=== PATIENT | female | born 1955 | race Caucasian/White ===

== ENCOUNTER 2021-04-24 19:23 | Inpatient (IN) | payer BC ==
[2021-04-24] MEDS ORDERED: Labetalol 20 MG/4 ML Syringe IVPUSH ONE (20:22)
--- NOTE | 2021-04-24 20:24 | EDM.PDOC ---
ED HPI GENERAL MEDICAL PROBLEM - General Chief Complaint: General Stated Complaint: UNKNOWN SOURCE OF BLEEDING, TROUBLES WITH BM Time Seen by Provider: 04/24/21 19:45 Source of Information: Reports: Patient History Limitations: Reports: No Limitations - History of Present Illness INITIAL COMMENTS - FREE TEXT/NARRATIVE: 65-year-old female from [place] has been having intermittent bloody stools for the past 2 months. She is supposed to be on an antihypertensive but stopped it because she thought it was making it worse. She thought it might be a blood thinner. Today they were on the vicente, she had to take a break and had a bowel movement and it seemed normal, however shortly afterwards she had another bowel movement and it was diarrheal and bloody. She has had 1 more bloody stool since that time. She denies any significant pain but on her exam she is very tender in the left lower quadrant and admits that it has been sore intermittent. No fevers or chills. She has not had a colonoscopy in her lifetime. She does not see primary care very often and gives me the impression that she is noncompliant. Her blood pressure on arrival was 234/107. Onset: Unknown/Unsure Associated Symptoms: Denies: Confusion, Fever/Chills, Headaches, Malaise, Nausea/Vomiting, Shortness of Breath, Weakness lower left quad Pain Score (Numeric/FACES): 2 - Related Data Allergies Allergy/AdvReac Type Severity Reaction Status Date / Time codeine Allergy Facial Verified 04/24/21 19:48 Swelling Home Meds: Home Meds NK [No Known Home Meds] 04/24/21 [History] Past Medical History HEENT History: Reports: Impaired Vision, Other (See Below) Other HEENT History: glasses Cardiovascular History: Reports: Hypertension, Other (See Below) Other Cardiovascular History: edema Genitourinary History: Reports: Urinary Incontinence 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: Musculoskeletal History: Reports: Arthritis, Other (See Below) Psychiatric History: Reports: Depression - Infectious Disease History Infectious Disease History: Reports: Chicken Pox, Measles - Past Surgical History Female Surgical History: Reports: Section Musculoskeletal Surgical History: Reports: Other (See Below) Other Musculoskeletal Surgeries/Procedures:: repair of left arm fx Social & Family History - Tobacco Use Tobacco Use Status *Q: Never Tobacco User - Caffeine Use Caffeine Use: Reports: Soda - Recreational Drug Use Recreational Drug Use: No ED ROS GENERAL - Review of Systems Review Of Systems: See Below Constitutional: Denies: Fever, Chills HEENT: Denies: Vision Change Respiratory: Denies: Shortness of Breath Cardiovascular: Denies: Chest Pain GI/Abdominal: Reports: Abdominal Pain, Hematochezia. Denies: Nausea, Vomiting Musculoskeletal: Reports: No Symptoms Skin: Reports: No Symptoms Neurological: Denies: Dizziness, Headache Psychiatric: Reports: No Symptoms Free Text/Narrative/Comment: Untreated hypertension ED EXAM, GENERAL - Physical Exam Exam: See Below Free Text/Narrative:: Despite passing sadia blood from the rectum, the patient does not look anemic. Her pulse is 65 and she is hypertensive. Exam Limited By: No Limitations General Appearance: Alert, No Apparent Distress Eye Exam: Bilateral Eye: Normal Inspection (Conjunctivae normal color, no jaundice) Respiratory/Chest: No Respiratory Distress, Lungs Clear Cardiovascular: Regular Rate, Rhythm. No: Tachycardia GI/Abdominal: Soft, Tender (Reacts with tenderness with mild guarding in the left lower quadrant) Neurological: Alert, Oriented, Normal Cognition, No Motor/Sensory Deficits Psychiatric: Normal Affect, Normal Mood Skin Exam: Warm, Dry Course - Vital Signs Last Recorded V/S: Last Vital Signs Temp 97.6 F 04/24/21 23:53 Pulse 57 L 04/24/21 23:35 Resp 16 04/24/21 23:35 BP 181/74 H 04/24/21 23:39 Pulse Ox 100 04/24/21 23:35 - Orders/Labs/Meds Orders: Medication Orders Acetaminophen (Acetaminophen 325 Mg Tab) 650 mg PO Q4H PRN PRN Reason: Pain (Mild 1-3)/fever Sodium Chloride (Normal Saline) 1,000 mls @ 125 mls/hr IV ASDIRECTED [facility] Last Admin: 04/24/21 23:40 Dose: 125 mls/hr Documented by: [id number] Lisinopril (Lisinopril 10 Mg Tab) 10 mg PO DAILY [facility] Last Admin: 04/24/21 23:39 Dose: 10 mg Documented by: [id number] Ondansetron HCl (Ondansetron 4 Mg/2 Ml Sdv) 4 mg IV Q4H PRN PRN Reason: Nausea/Vomiting Oxycodone HCl (Oxycodone 5 Mg Tab) 5 mg PO Q4H PRN PRN Reason: Pain (moderate 4-6) Polyethylene Glycol (Polyethylene Glycol 3350 Powder 17 Gm Packet) 17 gm PO DAILY PRN PRN Reason: Constipation Sodium Chloride (Sodium Chloride 0.9% 10 Ml Syringe) 10 ml FLUSH ASDIRECTED PRN PRN Reason: Keep Vein Open Labs: Laboratory Tests 04/24/21 04/24/21 04/24/21 Range/Units 19:57 19:57 19:57 WBC 8.3 (4.5-11.0) K/uL RBC 4.67 (3.30-5.50) M/uL Hgb 12.2 (12.0-15.0) g/dL Hct 38.6 (36.0-48.0) % MCV 83 (80-98) fL MCH 26 L (27-31) pg MCHC 32 (32-36) % Plt Count 305 (150-400) K/uL Neut % (Auto) 67.6 H (36-66) % Lymph % (Auto) 22.0 L (24-44) % [place] % (Auto) 7.6 H (2-6) % Eos % (Auto) 2.4 (2-4) % Baso % (Auto) 0.4 (0-1) % PT 10.1 (9.5-12.0) sec INR 0.93 (0.80-1.20) Sodium 138 L (140-148) mmol/L Potassium 3.9 (3.6-5.2) mmol/L Chloride 102 (100-108) mmol/L Carbon Dioxide 28 (21-32) mmol/L Anion Gap 11.9 (5.0-14.0) mmol/L BUN 12 (7-18) mg/dL Creatinine 0.9 (0.6-1.0) mg/dL Est Cr Clr Drug Dosing 57.57 mL/min Estimated GFR (MDRD) > 60 (>60) Glucose 130 H (74-106) mg/dL Calcium 8.6 (8.5-10.1) mg/dL Total Bilirubin < 0.1 L (0.2-1.0) mg/dL AST 13 L (15-37) U/L ALT 23 (12-78) U/L Alkaline Phosphatase 91 (46-116) U/L Total Protein 6.7 (6.4-8.2) g/dL Albumin 2.9 L (3.4-5.0) g/dL Globulin 3.8 H (2.3-3.5) g/dL Albumin/Globulin Ratio 0.8 L (1.2-2.2) Meds: Medications Generic Name Dose Route Start Last Admin Trade Name Douglasq PRN Reason Stop Dose Admin Acetaminophen 650 mg 04/24/21 22:56 Acetaminophen 325 Mg Tab PO Q4H PRN Pain (Mild 1-3)/fever Sodium Chloride 1,000 mls @ 125 mls/hr 04/24/21 22:56 04/24/21 23:40 Normal Saline IV 125 mls/hr ASDIRECTED CATHIE Administration Lisinopril 10 mg 04/24/21 22:56 04/24/21 23:39 Lisinopril 10 Mg Tab PO 10 mg DAILY CATHIE Administration Ondansetron HCl 4 mg 04/24/21 22:56 Ondansetron 4 Mg/2 Ml Sdv IV Q4H PRN Nausea/Vomiting Oxycodone HCl 5 mg 04/24/21 22:56 Oxycodone 5 Mg Tab PO Q4H PRN Pain (moderate 4-6) Polyethylene Glycol 17 gm 04/24/21 22:56 Polyethylene Glycol 3350 Powder 17 Gm Packet PO DAILY PRN Constipation Sodium Chloride 10 ml 04/24/21 22:56 Sodium Chloride 0.9% 10 Ml Syringe FLUSH ASDIRECTED PRN Keep Vein Open Discontinued Medications Generic Name Dose Route Start Last Admin Trade Name Douglasq PRN Reason Stop Dose Admin Sodium Chloride 1,000 mls @ 500 mls/hr 04/24/21 20:30 04/24/21 20:33 Normal Saline IV 500 mls/hr ASDIRECTED CATHIE Administration Sodium Chloride 100 mls @ 3 mls/sec 04/24/21 20:45 04/24/21 21:22 Normal Saline IV 3 mls/sec ASDIRECTED CATHIE Administration Iopamidol 150 ml 04/24/21 20:42 04/24/21 21:22 Iopamidol 612 Mg/Ml 150 Ml Bottle IV 04/25/21 20:43 150 ml . DIRECTED PRN Administration RADIOLOGY EXAM Labetalol HCl 20 mg 04/24/21 20:22 04/24/21 20:33 Labetalol 20 Mg/4 Ml Syringe IVPUSH 04/24/21 20:23 15 mg NOW ONE Administration Protocol Sodium Chloride 10 ml 04/24/21 20:42 04/24/21 21:22 Sodium Chloride 0.9% 10 Ml Sdv FLUSH 04/24/21 20:43 10 ml ONETIME ONE Administration - Re-Assessments/Exams Free Text/Narrative Re-Assessment/Exam: 04/24/21 21:08 CBC, CMP and INR was obtained and a CT scan of the abdomen and pelvis with IV contrast to rule out diverticulitis. Hemoglobin is normal, white count is normal, CMP and INR are reassuring. CT scan is pending. 04/25/21 01:04 IMPRESSION: 1. 4.2 cm possible intraluminal mass in the cecum. 2. Wall thickening of the distal rectum. Recommend direct visualization of these findings with colonoscopy. Above findings were discussed with Dr. Kraft, patient will be admitted for serial hemoglobins and further evaluation and stabilization of GI bleed. Departure - Departure Time of Disposition: 23:03 Disposition: Admitted As Inpatient 68 Clinical Impression: Rectal bleed, Hematochezia, Mass of cecum - Discharge Information Sepsis Event Note (ED) - Evaluation Sepsis Screening Result: No Definite Risk - Focused Exam Vital Signs: Vital Signs Temp Pulse Resp BP Pulse Ox 04/24/21 22:30 57 L 19 155/50 H 99 04/24/21 22:01 58 L 18 166/61 H 95 04/24/21 21:10 58 L 22 H 155/53 H 95 04/24/21 20:28 66 16 234/75 H 98 04/24/21 19:48 98.0 F 77 16 213/80 H 99 04/24/21 19:40 98.0 F 77 16 213/80 H 99
[2021-04-24] MEDS ORDERED: Sodium Chloride 0.9% 1,000 ML IV SCH (20:30)
[2021-04-24] MEDS ORDERED: Sodium Chloride 0.9% 10 ML SDV FLUSH ONE (20:42)
[2021-04-24] MEDS ORDERED: Iopamidol 612 MG/ML 150 ML Bottle IV PRN (20:42)
[2021-04-24] MEDS ORDERED: Sodium Chloride 0.9% 100 ML IV SCH (20:45)
--- NOTE | 2021-04-24 21:57 | CRLCT ---
For Patients: As a result of the Century Cures Act, medical imaging exams and procedure reports are released immediately into your electronic medical record. You may view this report before your referring provider. If you have questions, please contact your health care provider. INDICATION: Left lower quadrant abdominal pain. GI bleed. TECHNIQUE: CT scan of the abdomen and pelvis with 150 cc of Isovue-300 given intravenously. FINDINGS: The lung bases the are unremarkable. No focal abnormalities identified in the visualized portions of the liver, spleen, pancreas, and adrenal glands. A few small cysts in the right kidney measuring up to 8 mm. The kidneys are otherwise unremarkable. No hydronephrosis. Mild colonic diverticulosis with no evidence of diverticulitis. 4.2 cm intraluminal possible mass in the cecum. Wall thickening in the distal rectum. The remainder of the GI tract and is incompletely distended but shows no gross abnormalities. No retroperitoneal, pelvic sidewall, or mesenteric adenopathy. Degenerative and mild scoliotic changes of the spine. IMPRESSION: 1. 4.2 cm possible intraluminal mass in the cecum. 2. Wall thickening of the distal rectum. Recommend direct visualization of these findings with colonoscopy. Dictated by Marco Antonio Mcgee MD @ 04/24/2021 9:55:33 PM Please note that all CT scans at this facility use dose modulation, iterative reconstruction, and/or weight-based dosing when appropriate to reduce radiation dose to as low as reasonably achievable. Dictated by: Marco Antonio Mcgee MD @ 04/24/2021 21:55:39 (Electronically Signed)
--- NOTE | 2021-04-24 22:43 | PCM.HP.2 ---
H&P History of Present Illness - General Date of Service: 04/24/21 Admit Problem/Dx: Admission Diagnosis/Problem Admission Diagnosis/Problem Bleeding Source of Information: Patient, Family, Provider, RN Notes Reviewed History Limitations: Reports: No Limitations - History of Present Illness Initial Comments - Free Text/Narative: Ms. Galaviz is a 65-year-old woman who was admitted through the emergency department to observation status with intermittent lower GI bleeding. She has a history of bleeding with bowel movements over the past 3 months that has been relatively mild. This evening had 2 large bloody bowel movements 1 of which occurred after she presented to the emergency department. Hemoglobin is within normal range on initial check. CT scan of the abdomen and pelvis shows evidence of a colon mass which is likely the source of current bleeding. She has a history of hypertension and blood pressure was significantly elevated when she initially presented but now has come under better control while in the emergency department. lower left quad Pain Score (Numeric/FACES): 2 - Related Data Allergies/Adverse Reactions: Allergies Allergy/AdvReac Type Severity Reaction Status Date / Time codeine Allergy Facial Verified 04/24/21 19:48 Swelling Home Medications: Home Meds NK [No Known Home Meds] 04/24/21 [History] Past Medical History HEENT History: Reports: Impaired Vision, Other (See Below) Other HEENT History: glasses Cardiovascular History: Reports: Hypertension, Other (See Below) Other Cardiovascular History: edema Genitourinary History: Reports: Urinary Incontinence [employer]IAN History: Reports: Musculoskeletal History: Reports: Arthritis, Other (See Below) Psychiatric History: Reports: Depression - Infectious Disease History Infectious Disease History: Reports: Chicken Pox, Measles - Past Surgical History Female Surgical History: Reports: Section Musculoskeletal Surgical History: Reports: Other (See Below) Other Musculoskeletal Surgeries/Procedures:: repair of left arm fx Social & Family History - Tobacco Use Tobacco Use Status *Q: Never Tobacco User - Caffeine Use Caffeine Use: Reports: Soda - Recreational Drug Use Recreational Drug Use: No H&P Review of Systems - Review of Systems: Review Of Systems: See Below General: Reports: No Symptoms HEENT: Reports: No Symptoms Pulmonary: Reports: No Symptoms Cardiovascular: Reports: No Symptoms Gastrointestinal: Reports: Abdominal Pain, Hematochezia. Denies: Decreased Augusto etite, Difficulty Swallowing, Distension, Hematemesis, Melena, Mucous in Stool, Nausea, Vomiting Genitourinary: Reports: No Symptoms Musculoskeletal: Reports: No Symptoms Skin: Reports: No Symptoms Psychiatric: Reports: No Symptoms Neurological: Reports: No Symptoms Hematologic/Lymphatic: Reports: No Symptoms Immunologic: Reports: No Symptoms Exam - Exam Exam: See Below - Vital Signs Vital Signs: Last Vital Signs Temp 98.0 F 04/24/21 19:48 Pulse 57 L 04/24/21 22:30 Resp 19 04/24/21 22:30 BP 155/50 H 04/24/21 22:30 Pulse Ox 99 04/24/21 22:30 Weight: 223 lb 5.252 oz - Exam Quality Assessment: DVT Prophylaxis General: Alert, Oriented, Cooperative, Mild Distress HEENT: Conjunctiva Clear, Hearing Intact, Mucosa Moist & [place], Normal Nasal Septum, Posterior Pharynx Clear, Pupils Equal Neck: Supple, Trachea Midline, +2 Carotid Pulse wo Bruit Lungs: Clear to Auscultation, Normal Respiratory Effort Cardiovascular: Regular Rate, Regular Rhythm, Normal S1, Normal S2. No: Systolic Murmur, Diastolic Murmur GI/Abdominal Exam: Soft, Non-Tender, No Organomegaly, No Distention Back Exam: Normal Inspection, Full Range of Motion Extremities: Non-Tender, No Pedal Edema Skin: Warm, Dry, Intact Neurological: Cranial Nerves Intact, Strength Equal Bilateral, Normal Speech, Normal Tone, Sensation Intact. No: Focal Deficit Neuro Extensive - Mental Status: Alert, Oriented x3, Normal Mood/Affect, Normal Cognition, Memory Intact - Patient Data Lab Results Last 24 hrs: Laboratory Results - last 24 hr 04/24/21 04/24/21 04/24/21 Range/Units 19:57 19:57 19:57 WBC 8.3 (4.5-11.0) K/uL RBC 4.67 (3.30-5.50) M/uL Hgb 12.2 (12.0-15.0) g/dL Hct 38.6 (36.0-48.0) % MCV 83 (80-98) fL MCH 26 L (27-31) pg MCHC 32 (32-36) % Plt Count 305 (150-400) K/uL Neut % (Auto) 67.6 H (36-66) % Lymph % (Auto) 22.0 L (24-44) % [place] % (Auto) 7.6 H (2-6) % Eos % (Auto) 2.4 (2-4) % Baso % (Auto) 0.4 (0-1) % PT 10.1 (9.5-12.0) sec INR 0.93 (0.80-1.20) Sodium 138 L (140-148) mmol/L Potassium 3.9 (3.6-5.2) mmol/L Chloride 102 (100-108) mmol/L Carbon Dioxide 28 (21-32) mmol/L Anion Gap 11.9 (5.0-14.0) mmol/L BUN 12 (7-18) mg/dL Creatinine 0.9 (0.6-1.0) mg/dL Est Cr Clr Drug Dosing 57.57 mL/min Estimated GFR (MDRD) > 60 (>60) Glucose 130 H (74-106) mg/dL Calcium 8.6 (8.5-10.1) mg/dL Total Bilirubin < 0.1 L (0.2-1.0) mg/dL AST 13 L (15-37) U/L ALT 23 (12-78) U/L Alkaline Phosphatase 91 (46-116) U/L Total Protein 6.7 (6.4-8.2) g/dL Albumin 2.9 L (3.4-5.0) g/dL Globulin 3.8 H (2.3-3.5) g/dL Albumin/Globulin Ratio 0.8 L (1.2-2.2) Result Diagrams: 04/24/21 19:57 04/24/21 19:57 Sepsis Event Note - Evaluation Sepsis Screening Result: No Definite Risk - Focused Exam Vital Signs: Vital Signs Temp Pulse Resp BP Pulse Ox 04/24/21 22:30 57 L 19 155/50 H 99 04/24/21 22:01 58 L 18 166/61 H 95 04/24/21 21:10 58 L 22 H 155/53 H 95 04/24/21 20:28 66 16 234/75 H 98 04/24/21 19:48 98.0 F 77 16 213/80 H 99 04/24/21 19:40 98.0 F 77 16 213/80 H 99 *Q Meaningful Use (ADM) - VTE *Q VTE Pharmacological Contraindications *Q: Active Hemorrhage - VTE Risk Assess *Q Each Risk Factor Represents 1 Point: Obesity ( BMI > 25 kg/m2) Total Score 1 Point Risk Factors: 1 Each Risk Factor Represents 2 Points: Age 60 - 74 Years, Malignancy (present or previous) Total Score 2 Point Risk Factors: 4 Each Risk Factor Represents 3 Points: None Total Score 3 Point Risk Factors: 0 Each Risk Factor Represents 5 Points: None Total Score 5 Point Risk Factors: 0 Venous Thromboembolism Risk Factor Score *Q: 5 Problem List Initiated/Reviewed/Updated: Yes Orders Last 24hrs: Active Orders 24 hr Category Date Time Status Patient Status Manage Transfer [TRANSFER] Routine ADT 04/24/21 22:34 Active HGB [HEMOGLOBIN] [HEME] Stat Lab 04/24/21 23:00 Ordered Iopamidol [Isovue-300 (61%)] Med 04/24/21 20:42 Active 150 ml IV . DIRECTED PRN Sodium Chloride 0.9% [Normal Saline] 1,000 ml Med 04/24/21 20:30 Active IV ASDIRECTED Sodium Chloride 0.9% [Normal Saline] 100 ml Med 04/24/21 20:45 Active IV ASDIRECTED Resuscitation Status Routine Resus Stat 04/24/21 22:36 Ordered Medication Orders Sodium Chloride (Normal Saline) 1,000 mls @ 500 mls/hr IV ASDIRECTED [facility] Last Admin: 04/24/21 20:33 Dose: 500 mls/hr Documented by: JOEL Sodium Chloride (Normal Saline) 100 mls @ 3 mls/sec IV ASDIRECTED [facility] Last Admin: 04/24/21 21:22 Dose: 3 mls/sec Documented by: [email or web address] Iopamidol (Iopamidol 612 Mg/Ml 150 Ml Bottle) 150 ml IV . DIRECTED PRN PRN Reason: RADIOLOGY EXAM Stop: 04/25/21 20:43 Last Admin: 04/24/21 21:22 Dose: 150 ml Documented by: [email or web address] Assessment/Plan Comment:: ASSESSMENT AND PLAN LOWER GI BLEED-history of intermittent light bleeding with bowel movements for the past 3 months. 2 large bloody bowel movements noted late afternoon and evening. CT scan shows evidence of probable colon mass. -IV fluids for hydration -Clear liquid diet -Serial hemoglobin levels -Defer colonoscopy to outpatient basis as she receives her health care in [facility] PROBABLE COLON MASS -Colonoscopy as above HYPERTENSION-blood pressure significantly elevated on initial presentation to the emergency department -Lisinopril 10 mg p.o. daily, start this evening MAINTENANCE ISSUES -DVT prophylaxis; SCUDs, hold on anticoagulation because of active bleeding -GI prophylaxis; not indicated -Wade catheter; not indicated -Nutrition; clear liquid diet -Nicotinic dependence; not required CODE STATUS-FULL CODE ADMISSION STATUS-this patient will be admitted to observation status, expect no more than a one night hospital stay for evaluation and management of problems as outlined above. DISPOSITION-anticipate discharge to home after the hospital stay. - Mortality Measure Prognosis:: Good
[2021-04-24] MEDS ORDERED: Sodium Chloride 0.9% 10 ML Syringe FLUSH PRN (22:56)
[2021-04-24] MEDS ORDERED: Ondansetron 4 MG/2 ML SDV IV PRN (22:56)
[2021-04-24] MEDS ORDERED: Acetaminophen 325 MG Tab PO PRN (22:56)
[2021-04-24] MEDS ORDERED: Polyethylene Glycol 3350 Powder 17 GM Packet PO PRN (22:56)
[2021-04-24] MEDS ORDERED: oxyCODONE 5 MG Tab PO PRN (22:56)
[2021-04-24] MEDS: Lisinopril 10 MG Tab PO SCH (23:39)
[2021-04-24] MEDS: Sodium Chloride 0.9% 1,000 ML IV SCH (23:40)
[2021-04-25] MEDS: Sodium Chloride 0.9% 1,000 ML IV SCH (07:40)
[2021-04-25] MEDS ORDERED: Bisacodyl 5 MG Tab PO ONE ×2 (10:01→20:00)
[2021-04-25] MEDS: Lisinopril 10 MG Tab PO SCH (10:15)
--- NOTE | 2021-04-25 10:15 | PCM.PN ---
- General Info Date of Service: 04/25/21 Subjective Update: Ms. Galaviz has been stable since admission yesterday. Hemoglobin level has dropped with hydration and likely from bleeding yesterday. Since admission she has had only small amount of bleeding associated with bowel movements. Continues to experience intermittent cramping abdominal pain. Blood pressure control has improved with current management. Functional Status: Reports: Tolerating Diet, Ambulating, Urinating - Review of Systems General: Reports: No Symptoms Pulmonary: Reports: No Symptoms Cardiovascular: Reports: No Symptoms Gastrointestinal: Reports: Abdominal Pain, Hematochezia. Denies: Constipation, Decreased Appetite, Difficulty Swallowing, Melena, Nausea, Vomiting Genitourinary: Reports: No Symptoms - Patient Data Vitals - Most Recent: Last Vital Signs Temp 96.9 F 04/25/21 07:00 Pulse 55 L 04/25/21 07:00 Resp 16 04/25/21 07:00 BP 157/91 H 04/25/21 07:00 Pulse Ox 99 04/25/21 07:00 Weight - Most Recent: 220 lb 6.4 oz I&O - Last 24 Hours: Intake & Output 04/24/21 04/25/21 04/25/21 22:59 06:59 14:59 Intake Total 1579 Output Total 1000 900 Balance 579 -900 Lab Results Last 24 Hours: Laboratory Results - last 24 hr 04/24/21 04/24/21 04/24/21 Range/Units 19:57 19:57 19:57 WBC 8.3 (4.5-11.0) K/uL RBC 4.67 (3.30-5.50) M/uL Hgb 12.2 (12.0-15.0) g/dL Hct 38.6 (36.0-48.0) % MCV 83 (80-98) fL MCH 26 L (27-31) pg MCHC 32 (32-36) % Plt Count 305 (150-400) K/uL Neut % (Auto) 67.6 H (36-66) % Lymph % (Auto) 22.0 L (24-44) % [place] % (Auto) 7.6 H (2-6) % Eos % (Auto) 2.4 (2-4) % Baso % (Auto) 0.4 (0-1) % PT 10.1 (9.5-12.0) sec INR 0.93 (0.80-1.20) Sodium 138 L (140-148) mmol/L Potassium 3.9 (3.6-5.2) mmol/L Chloride 102 (100-108) mmol/L Carbon Dioxide 28 (21-32) mmol/L Anion Gap 11.9 (5.0-14.0) mmol/L BUN 12 (7-18) mg/dL Creatinine 0.9 (0.6-1.0) mg/dL Est Cr Clr Drug Dosing 57.57 mL/min Estimated GFR (MDRD) > 60 (>60) Glucose 130 H (74-106) mg/dL Calcium 8.6 (8.5-10.1) mg/dL Total Bilirubin < 0.1 L (0.2-1.0) mg/dL AST 13 L (15-37) U/L ALT 23 (12-78) U/L Alkaline Phosphatase 91 (46-116) U/L Total Protein 6.7 (6.4-8.2) g/dL Albumin 2.9 L (3.4-5.0) g/dL Globulin 3.8 H (2.3-3.5) g/dL Albumin/Globulin Ratio 0.8 L (1.2-2.2) 04/24/21 04/25/21 04/25/21 Range/Units 23:00 04:35 04:35 WBC 7.5 (4.5-11.0) K/uL RBC 4.28 (3.30-5.50) M/uL Hgb 11.1 L 10.9 L (12.0-15.0) g/dL Hct 35.2 L (36.0-48.0) % MCV 82 (80-98) fL MCH 26 L (27-31) pg MCHC 31 L (32-36) % Plt Count 255 (150-400) K/uL Neut % (Auto) 64.0 (36-66) % Lymph % (Auto) 24.7 (24-44) % [place] % (Auto) 8.6 H (2-6) % Eos % (Auto) 2.4 (2-4) % Baso % (Auto) 0.3 (0-1) % PT (9.5-12.0) sec INR (0.80-1.20) Sodium 139 L (140-148) mmol/L Potassium 3.8 (3.6-5.2) mmol/L Chloride 106 (100-108) mmol/L Carbon Dioxide 26 (21-32) mmol/L Anion Gap 10.8 (5.0-14.0) mmol/L BUN 9 (7-18) mg/dL Creatinine 0.8 (0.6-1.0) mg/dL Est Cr Clr Drug Dosing 64.66 mL/min Estimated GFR (MDRD) > 60 (>60) Glucose 85 (74-106) mg/dL Calcium 8.3 L (8.5-10.1) mg/dL Total Bilirubin (0.2-1.0) mg/dL AST (15-37) U/L ALT (12-78) U/L Alkaline Phosphatase (46-116) U/L Total Protein (6.4-8.2) g/dL Albumin (3.4-5.0) g/dL Globulin (2.3-3.5) g/dL Albumin/Globulin Ratio (1.2-2.2) Med Orders - Current: Current Medications Acetaminophen (Acetaminophen 325 Mg Tab) 650 mg PO Q4H PRN PRN Reason: Pain (Mild 1-3)/fever Bisacodyl (Bisacodyl 5 Mg Tab) 10 mg PO ONETIME ONE Stop: 04/25/21 20:01 Lactated Ringer's (Ringers, Lactated) 1,000 mls @ 100 mls/hr IV ASDIRECTED [facility] Lisinopril (Lisinopril 10 Mg Tab) 10 mg PO DAILY [facility] Last Admin: 04/24/21 23:39 Dose: 10 mg Documented by: Ondansetron HCl (Ondansetron 4 Mg/2 Ml Sdv) 4 mg IV Q4H PRN PRN Reason: Nausea/Vomiting Oxycodone HCl (Oxycodone 5 Mg Tab) 5 mg PO Q4H PRN PRN Reason: Pain (moderate 4-6) Polyethylene Glycol (Polyethylene Glycol 3350 Powder 17 Gm Packet) 17 gm PO DAILY PRN PRN Reason: Constipation Polyethylene Glycol (Polyethylene Glycol 3350 Powder 238 Gm Bot) 238 gm PO ONETIME ONE Stop: 04/25/21 17:01 Sodium Chloride (Sodium Chloride 0.9% 10 Ml Syringe) 10 ml FLUSH ASDIRECTED PRN PRN Reason: Keep Vein Open Discontinued Medications Bisacodyl (Bisacodyl 5 Mg Tab) 10 mg PO ONETIME ONE Stop: 04/25/21 10:02 Sodium Chloride (Normal Saline) 1,000 mls @ 500 mls/hr IV ASDIRECTED [facility] Last Admin: 04/24/21 20:33 Dose: 500 mls/hr Documented by: Sodium Chloride (Normal Saline) 100 mls @ 3 mls/sec IV ASDIRECTED [facility] Last Admin: 04/24/21 21:22 Dose: 3 mls/sec Documented by: Sodium Chloride (Normal Saline) 1,000 mls @ 125 mls/hr IV ASDIRECTED [facility] Last Admin: 04/25/21 07:40 Dose: 125 mls/hr Documented by: Iopamidol (Iopamidol 612 Mg/Ml 150 Ml Bottle) 150 ml IV . DIRECTED PRN PRN Reason: RADIOLOGY EXAM Stop: 04/25/21 20:43 Last Admin: 04/24/21 21:22 Dose: 150 ml Documented by: Labetalol HCl (Labetalol 20 Mg/4 Ml Syringe) 20 mg IVPUSH NOW ONE; Protocol Stop: 04/24/21 20:23 Last Admin: 04/24/21 20:33 Dose: 15 mg Documented by: Sodium Chloride (Sodium Chloride 0.9% 10 Ml Sdv) 10 ml FLUSH ONETIME ONE Stop: 04/24/21 20:43 Last Admin: 04/24/21 21:22 Dose: 10 ml Documented by: - Exam Quality Assessment: DVT Prophylaxis General: Alert, Oriented, Cooperative, Mild Distress Lungs: Clear to Auscultation, Normal Respiratory Effort Cardiovascular: Regular Rate, Regular Rhythm, No Murmurs GI/Abdominal Exam: Soft, No Organomegaly, Tender. No: Distended, Guarding, Rigid, Rebound Extremities: Non-Tender, No Pedal Edema - Patient Data Lab Results Last 24 hrs: Laboratory Results - last 24 hr 04/24/21 04/24/21 04/24/21 Range/Units 19:57 19:57 19:57 WBC 8.3 (4.5-11.0) K/uL RBC 4.67 (3.30-5.50) M/uL Hgb 12.2 (12.0-15.0) g/dL Hct 38.6 (36.0-48.0) % MCV 83 (80-98) fL MCH 26 L (27-31) pg MCHC 32 (32-36) % Plt Count 305 (150-400) K/uL Neut % (Auto) 67.6 H (36-66) % Lymph % (Auto) 22.0 L (24-44) % [place] % (Auto) 7.6 H (2-6) % Eos % (Auto) 2.4 (2-4) % Baso % (Auto) 0.4 (0-1) % PT 10.1 (9.5-12.0) sec INR 0.93 (0.80-1.20) Sodium 138 L (140-148) mmol/L Potassium 3.9 (3.6-5.2) mmol/L Chloride 102 (100-108) mmol/L Carbon Dioxide 28 (21-32) mmol/L Anion Gap 11.9 (5.0-14.0) mmol/L BUN 12 (7-18) mg/dL Creatinine 0.9 (0.6-1.0) mg/dL Est Cr Clr Drug Dosing 57.57 mL/min Estimated GFR (MDRD) > 60 (>60) Glucose 130 H (74-106) mg/dL Calcium 8.6 (8.5-10.1) mg/dL Total Bilirubin < 0.1 L (0.2-1.0) mg/dL AST 13 L (15-37) U/L ALT 23 (12-78) U/L Alkaline Phosphatase 91 (46-116) U/L Total Protein 6.7 (6.4-8.2) g/dL Albumin 2.9 L (3.4-5.0) g/dL Globulin 3.8 H (2.3-3.5) g/dL Albumin/Globulin Ratio 0.8 L (1.2-2.2) 04/24/21 04/25/21 04/25/21 Range/Units 23:00 04:35 04:35 WBC 7.5 (4.5-11.0) K/uL RBC 4.28 (3.30-5.50) M/uL Hgb 11.1 L 10.9 L (12.0-15.0) g/dL Hct 35.2 L (36.0-48.0) % MCV 82 (80-98) fL MCH 26 L (27-31) pg MCHC 31 L (32-36) % Plt Count 255 (150-400) K/uL Neut % (Auto) 64.0 (36-66) % Lymph % (Auto) 24.7 (24-44) % [place] % (Auto) 8.6 H (2-6) % Eos % (Auto) 2.4 (2-4) % Baso % (Auto) 0.3 (0-1) % PT (9.5-12.0) sec INR (0.80-1.20) Sodium 139 L (140-148) mmol/L Potassium 3.8 (3.6-5.2) mmol/L Chloride 106 (100-108) mmol/L Carbon Dioxide 26 (21-32) mmol/L Anion Gap 10.8 (5.0-14.0) mmol/L BUN 9 (7-18) mg/dL Creatinine 0.8 (0.6-1.0) mg/dL Est Cr Clr Drug Dosing 64.66 mL/min Estimated GFR (MDRD) > 60 (>60) Glucose 85 (74-106) mg/dL Calcium 8.3 L (8.5-10.1) mg/dL Total Bilirubin (0.2-1.0) mg/dL AST (15-37) U/L ALT (12-78) U/L Alkaline Phosphatase (46-116) U/L Total Protein (6.4-8.2) g/dL Albumin (3.4-5.0) g/dL Globulin (2.3-3.5) g/dL Albumin/Globulin Ratio (1.2-2.2) Result Diagrams: 04/25/21 04:35 04/25/21 04:35 Sepsis Event Note - Evaluation Sepsis Screening Result: No Definite Risk - Focused Exam Vital Signs: Vital Signs Temp Temp Pulse Resp BP BP Pulse Ox 04/25/21 07:00 96.9 F 55 L 16 157/91 H 99 04/25/21 03:00 97.8 F 58 L 16 144/65 H 97 04/25/21 00:00 04/24/21 23:53 97.6 F 04/24/21 23:39 181/74 H 04/24/21 23:35 57 L 16 181/74 H 100 04/24/21 22:30 57 L 19 155/50 H 99 Pulse Ox 04/25/21 07:00 04/25/21 03:00 04/25/21 00:00 100 04/24/21 23:53 04/24/21 23:39 04/24/21 23:35 04/24/21 22:30 - Problem List Review Problem List Initiated/Reviewed/Updated: Yes - My Orders Last 24 Hours: My Active Orders 04/24/21 Dinner Clear Liquid Diet [DIET] 04/24/21 22:36 Resuscitation Status Routine 04/24/21 22:56 Acetaminophen [TylenoL] 650 mg PO Q4H PRN Ondansetron [Zofran] 4 mg IV Q4H PRN Sodium Chloride 0.9% [Saline Flush] 10 ml FLUSH ASDIRECTED PRN lisinopriL [Prinivil] 10 mg PO DAILY oxyCODONE 5 mg PO Q4H PRN polyethylene glycoL 3350 [MiraLAX] 17 gm PO DAILY PRN 04/24/21 22:56 Ambulate [RC] QID Height and Weight [RC] DAILY Intake and Output [RC] QSHIFT Notify Provider Vital Signs [RC] ASDIRECTED Oxygen Therapy [RC] PRN Peripheral IV Care [RC] . DIRECTED Up ad Analy [RC] ASDIRECTED Up to Chair [RC] QID VTE/DVT Education [RC] Per Unit Routine Vital Signs [RC] Q4H Peripheral IV Insertion Adult [OM.PC] Routine Sequential Compression Device [OM.PC] Per Unit Routine VTE Pharmacological Contraindications [AST] Per Unit Routine 04/25/21 10:00 Convert IV to Saline Lock [OM.PC] Routine 04/25/21 10:01 Verify Patient Consent Obtain [RC] ASDIRECTED Schedule Procedure [COMM] Routine 04/25/21 10:03 Consult to Physician [CONS] Routine 04/25/21 10:04 Notify Provider Consults [RC] ASDIRECTED 04/25/21 10:05 Patient Status [ADT] Routine 04/25/21 17:00 polyethylene glycoL 3350 [MiraLAX] 238 gm PO ONETIME ONE 04/25/21 20:00 bisacodyL [Dulcolax] 10 mg PO ONETIME ONE 04/26/21 00:01 Lactated Ringers [Ringers, Lactated] 1,000 ml IV ASDIRECTED 04/26/21 05:00 BASIC METABOLIC PANEL,BMP [CHEM] Timed CBC WITH AUTO DIFF [HEME] Timed 04/26/21 Breakfast NPO After Midnight [Nothing per Oral After Midnight Diet] [DIET] - Plan Plan:: ASSESSMENT AND PLAN LOWER GI BLEED-history of intermittent light bleeding with bowel movements for the past [address] scan shows evidence of probable colon mass. Since admission only mild bleeding with bowel movements -Saline lock IV -Clear liquid diet -N.p.o. after midnight -Resume IV fluids at midnight -1 day colonoscopy prep -Consult Dr. Sierra for colonoscopy in a.m. 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 daily MAINTENANCE ISSUES -DVT prophylaxis; SCUDs, hold on anticoagulation because of active bleeding -GI prophylaxis; not indicated -Wade catheter; not indicated -Nutrition; clear liquid diet -Nicotinic dependence; not required CODE STATUS-FULL CODE ADMISSION STATUS-we will change to inpatient status today, because of ongoing bleeding and need for colonoscopy DISPOSITION-anticipate discharge to home after the hospital stay.
[2021-04-25] MEDS ORDERED: Polyethylene Glycol 3350 Powder 238 GM Bot PO ONE (17:00)
[2021-04-25] MEDS ORDERED: Lisinopril 10 MG Tab PO STA (20:07)
[2021-04-26] MEDS: Lactated Ringers 1,000 ML IV SCH ×2 (00:12→17:03)
[2021-04-26] MEDS ORDERED: Midazolam 1 MG/ML 2 ML SDV ONE (07:22)
[2021-04-26] MEDS ORDERED: Propofol 200 MG/20 ML SDV ONE (07:22)
[2021-04-26] MEDS ORDERED: fentaNYL 100 MCG/2 ML SDV ONE (07:22)
[2021-04-26] MEDS: Lisinopril 10 MG Tab PO SCH (11:28)
--- NOTE | 2021-04-26 14:23 | PCM.PN ---
- General Info Date of Service: 04/26/21 Subjective Update: No acute events overnight. She reports very mild lower abdominal pain. She has had a small amount of blood in her stools. No nausea. Tolerated colonoscopy th is morning and plan is for right colon resection tomorrow. Blood pressure fairly well controlled with only mild elevation at this time. No fevers. Hemoglobin stable. Functional Status: Reports: Pain Controlled, Tolerating Diet - Review of Systems General: Denies: Fever Gastrointestinal: Reports: Hematochezia - Patient Data Vitals - Most Recent: Last Vital Signs Temp 35.6 C L 04/26/21 11:29 Pulse 49 L 04/26/21 11:29 Resp 18 04/26/21 11:29 BP 156/71 H 04/26/21 11:29 Pulse Ox 97 04/26/21 11:29 Weight - Most Recent: 99.972 kg I&O - Last 24 Hours: Intake & Output 04/25/21 04/26/21 04/26/21 22:59 06:59 14:59 Intake Total 1000 150 560 Output Total 100 Balance 900 150 560 Lab Results Last 24 Hours: Laboratory Results - last 24 hr 04/26/21 04/26/21 04/26/21 Range/Units 04:25 04:25 09:25 WBC 7.5 (4.5-11.0) K/uL RBC 4.28 (3.30-5.50) M/uL Hgb 11.0 L (12.0-15.0) g/dL Hct 35.3 L (36.0-48.0) % MCV 83 (80-98) fL MCH 26 L (27-31) pg MCHC 31 L (32-36) % Plt Count 275 (150-400) K/uL Neut % (Auto) 62.2 (36-66) % Lymph % (Auto) 26.1 (24-44) % [place] % (Auto) 9.0 H (2-6) % Eos % (Auto) 2.4 (2-4) % Baso % (Auto) 0.3 (0-1) % Sodium 138 L (140-148) mmol/L Potassium 3.8 (3.6-5.2) mmol/L Chloride 105 (100-108) mmol/L Carbon Dioxide 26 (21-32) mmol/L Anion Gap 10.8 (5.0-14.0) mmol/L BUN 8 (7-18) mg/dL Creatinine 0.8 (0.6-1.0) mg/dL Est Cr Clr Drug Dosing 64.77 mL/min Estimated GFR (MDRD) > 60 (>60) Glucose 86 (74-106) mg/dL Calcium 8.8 (8.5-10.1) mg/dL Blood Type A POSITIVE Gel Antibody Screen Negative Crossmatch See Detail Med Orders - Current: Current Medications Acetaminophen (Acetaminophen 325 Mg Tab) 650 mg PO Q4H PRN PRN Reason: Pain (Mild 1-3)/fever Alvimopan (Alvimopan 12 Mg Capsule) 12 mg PO ONETIME ONE Stop: 04/27/21 09:01 Lactated Ringer's (Ringers, Lactated) 1,000 mls @ 100 mls/hr IV ASDIRECTED [facility] Last Admin: 04/26/21 00:12 Dose: 100 mls/hr Documented by: Cefoxitin Sodium 2 gm/ Sodium (Chloride) 50 mls @ 100 mls/hr IV ONETIME ONE Stop: 04/27/21 11:29 Fentanyl 2,500 mcg/ Sodium (Chloride) 250 mls @ 0 mls/hr EPIDUR TITRATE [facility]; Protocol Lisinopril (Lisinopril 10 Mg Tab) 10 mg PO DAILY [facility] Stop: 04/26/21 20:00 Last Admin: 04/26/21 11:28 Dose: 10 mg Documented by: Lisinopril (Lisinopril 10 Mg Tab) 10 mg PO ONETIME ONE Stop: 04/27/21 08:01 Lisinopril (Lisinopril 10 Mg Tab) 10 mg PO DAILY [facility] Naloxone HCl (Naloxone 0.4 Mg/Ml Sdv) 0.1 mg IVPUSH Q5M PRN PRN Reason: RESP RATE LESS THAN 6/MINUTE Ondansetron HCl (Ondansetron 4 Mg/2 Ml Sdv) 4 mg IV Q4H PRN PRN Reason: Nausea/Vomiting Oxycodone HCl (Oxycodone 5 Mg Tab) 5 mg PO Q4H PRN PRN Reason: Pain (moderate 4-6) Polyethylene Glycol (Polyethylene Glycol 3350 Powder 17 Gm Packet) 17 gm PO DAILY PRN PRN Reason: Constipation Sodium Chloride (Sodium Chloride 0.9% 10 Ml Syringe) 10 ml FLUSH ASDIRECTED PRN PRN Reason: Keep Vein Open Discontinued Medications Bisacodyl (Bisacodyl 5 Mg Tab) 10 mg PO ONETIME ONE Stop: 04/25/21 10:02 Last Admin: 04/25/21 10:16 Dose: 10 mg Documented by: Bisacodyl (Bisacodyl 5 Mg Tab) 10 mg PO ONETIME ONE Stop: 04/25/21 20:01 Last Admin: 04/25/21 20:57 Dose: 10 mg Documented by: Fentanyl (Fentanyl 100 Mcg/2 Ml Sdv) Confirm Administered Dose 100 mcg .ROUTE .STK-MED ONE Stop: 04/26/21 07:23 Sodium Chloride (Normal Saline) 1,000 mls @ 500 mls/hr IV ASDIRECTED [facility] Last Admin: 04/24/21 20:33 Dose: 500 mls/hr Documented by: Sodium Chloride (Normal Saline) 100 mls @ 3 mls/sec IV ASDIRECTED [facility] Last Admin: 04/24/21 21:22 Dose: 3 mls/sec Documented by: Sodium Chloride (Normal Saline) 1,000 mls @ 125 mls/hr IV ASDIRECTED [facility] Last Admin: 04/25/21 07:40 Dose: 125 mls/hr Documented by: Iopamidol (Iopamidol 612 Mg/Ml 150 Ml Bottle) 150 ml IV . DIRECTED PRN PRN Reason: RADIOLOGY EXAM Stop: 04/25/21 20:43 Last Admin: 04/24/21 21:22 Dose: 150 ml Documented by: Labetalol HCl (Labetalol 20 Mg/4 Ml Syringe) 20 mg IVPUSH NOW ONE; Protocol Stop: 04/24/21 20:23 Last Admin: 04/24/21 20:33 Dose: 15 mg Documented by: Lisinopril (Lisinopril 10 Mg Tab) 10 mg PO NOW STA Stop: 04/25/21 20:08 Last Admin: 04/25/21 20:55 Dose: 10 mg Documented by: Midazolam HCl (Midazolam 1 Mg/Ml 2 Ml Sdv) Confirm Administered Dose 2 mg .ROUTE .STK-MED ONE Stop: 04/26/21 07:23 Polyethylene Glycol (Polyethylene Glycol 3350 Powder 238 Gm Bot) 238 gm PO ONETIME ONE Stop: 04/25/21 17:01 Last Admin: 04/25/21 17:36 Dose: 238 gm Documented by: Propofol (Propofol 200 Mg/20 Ml Sdv) Confirm Administered Dose 200 mg .ROUTE .STK-MED ONE Stop: 04/26/21 07:23 Sodium Chloride (Sodium Chloride 0.9% 10 Ml Sdv) 10 ml FLUSH ONETIME ONE Stop: 04/24/21 20:43 Last Admin: 04/24/21 21:22 Dose: 10 ml Documented by: - Exam Quality Assessment: No: Supplemental Oxygen General: Alert, Oriented, Cooperative, No Acute Distress Lungs: Normal Respiratory Effort GI/Abdominal Exam: Soft, No Distention Extremities: No Pedal Edema Psy/Mental Status: Alert, Normal Affect - Patient Data Lab Results Last 24 hrs: Laboratory Results - last 24 hr 04/26/21 04/26/21 04/26/21 Range/Units 04:25 04:25 09:25 WBC 7.5 (4.5-11.0) K/uL RBC 4.28 (3.30-5.50) M/uL Hgb 11.0 L (12.0-15.0) g/dL Hct 35.3 L (36.0-48.0) % MCV 83 (80-98) fL MCH 26 L (27-31) pg MCHC 31 L (32-36) % Plt Count 275 (150-400) K/uL Neut % (Auto) 62.2 (36-66) % Lymph % (Auto) 26.1 (24-44) % [place] % (Auto) 9.0 H (2-6) % Eos % (Auto) 2.4 (2-4) % Baso % (Auto) 0.3 (0-1) % Sodium 138 L (140-148) mmol/L Potassium 3.8 (3.6-5.2) mmol/L Chloride 105 (100-108) mmol/L Carbon Dioxide 26 (21-32) mmol/L Anion Gap 10.8 (5.0-14.0) mmol/L BUN 8 (7-18) mg/dL Creatinine 0.8 (0.6-1.0) mg/dL Est Cr Clr Drug Dosing 64.77 mL/min Estimated GFR (MDRD) > 60 (>60) Glucose 86 (74-106) mg/dL Calcium 8.8 (8.5-10.1) mg/dL Blood Type A POSITIVE Gel Antibody Screen Negative Crossmatch See Detail Result Diagrams: 04/26/21 04:25 04/26/21 04:25 Sepsis Event Note - Evaluation Sepsis Screening Result: No Definite Risk - Focused Exam Vital Signs: Vital Signs Temp Pulse Resp BP BP Pulse Ox 04/26/21 11:29 35.6 C L 49 L 18 156/71 H 97 04/26/21 11:28 156/71 H 04/26/21 10:34 47 L 16 159/77 H 98 04/26/21 10:00 45 L 16 139/56 L 99 04/26/21 09:32 44 L 16 129/68 98 04/26/21 09:15 45 L 16 98/76 96 04/26/21 09:00 47 L 16 135/60 95 04/26/21 08:48 46 L 16 143/61 H 95 04/26/21 08:38 36.1 C 50 L 16 131/60 96 04/26/21 04:00 36.1 C 55 L 18 138/61 98 - Problem List Review Problem List Initiated/Reviewed/Updated: Yes - Plan Plan:: ASSESSMENT AND PLAN LOWER GI BLEED-history of intermittent light bleeding with bowel movements for the past [address] scan shows evidence of probable colon mass and this was confirmed with endoscopy. Minimal bleeding with stable hemoglobin. -Saline lock IV -Clear liquid diet -N.p.o. 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 -Surgical intervention tomorrow per Dr. Sierra ACUTE BLOOD LOSS ANEMIA-secondary to lower GI bleed. Hemoglobin stable. HYPERTENSION-blood pressure control improved since admission and stable. -Lisinopril 10 mg p.o. daily MAINTENANCE ISSUES -DVT prophylaxis; SCUDs, hold on anticoagulation because of active bleeding -GI prophylaxis; not indicated -Wade catheter; not indicated -Nutrition; clear liquid diet DISPOSITION-anticipate discharge to home after the hospital stay. Anticipate discharge home after the hospital stay
[2021-04-27] MEDS: Lactated Ringers 1,000 ML IV SCH (02:09)
[2021-04-27] MEDS ORDERED: Bupivacaine 0.5% 50 ML MDV ONE (07:09)
[2021-04-27] MEDS ORDERED: Meropenem 500 MG SDV ONE ×3 (07:09→14:42)
[2021-04-27] MEDS ORDERED: Lidocaine 1% with EPINEPHrine 1:100,000 50 ML MDV ONE (07:10)
--- NOTE | 2021-04-27 07:29 | PCM.PN ---
- General Info Date of Service: 04/27/21 Subjective Update: No acute events overnight. Patient reports persistent mild lower abdominal pain which is stable. She had a small amount of bloody stool yesterday evening. No nausea. No shortness of breath. Blood pressures have been fairly well controlled. Surgical intervention is planned this morning. Functional Status: Reports: Pain Controlled - Patient Data Vitals - Most Recent: Last Vital Signs Temp 36.4 C 04/27/21 07:14 Pulse 57 L 04/27/21 07:14 Resp 16 04/27/21 07:14 BP 186/82 H 04/27/21 07:14 Pulse Ox 99 04/27/21 07:14 Weight - Most Recent: 99.972 kg I&O - Last 24 Hours: Intake & Output 04/26/21 04/27/21 04/27/21 22:59 06:59 14:59 Intake Total 600 1153 Balance 600 1153 Lab Results Last 24 Hours: Laboratory Results - last 24 hr 04/26/21 04/27/21 04/27/21 Range/Units 09:25 04:15 04:15 WBC 7.3 (4.5-11.0) K/uL RBC 4.35 (3.30-5.50) M/uL Hgb 11.2 L (12.0-15.0) g/dL Hct 35.9 L (36.0-48.0) % MCV 83 (80-98) fL MCH 26 L (27-31) pg MCHC 31 L (32-36) % Plt Count 279 (150-400) K/uL Sodium 140 (140-148) mmol/L Potassium 3.8 (3.6-5.2) mmol/L Chloride 104 (100-108) mmol/L Carbon Dioxide 28 (21-32) mmol/L Anion Gap 8.4 (5.0-14.0) mmol/L BUN 9 (7-18) mg/dL Creatinine 0.8 (0.6-1.0) mg/dL Est Cr Clr Drug Dosing 64.77 mL/min Estimated GFR (MDRD) > 60 (>60) Glucose 85 (74-106) mg/dL Calcium 8.5 (8.5-10.1) mg/dL Phosphorus 4.3 (2.5-4.9) mg/dL Magnesium 1.7 L (1.8-2.4) mg/dL Ferritin 43 (8-388) ng/ml Total Bilirubin 0.3 D (0.2-1.0) mg/dL AST 11 L (15-37) U/L ALT 21 (12-78) U/L Alkaline Phosphatase 80 (46-116) U/L Total Protein 6.0 L (6.4-8.2) g/dL Albumin 2.5 L (3.4-5.0) g/dL Globulin 3.5 (2.3-3.5) g/dL Albumin/Globulin Ratio 0.7 L (1.2-2.2) Blood Type A POSITIVE Gel Antibody Screen Negative Crossmatch See Detail Med Orders - Current: Current Medications Acetaminophen (Acetaminophen 325 Mg Tab) 650 mg PO Q4H PRN PRN Reason: Pain (Mild 1-3)/fever Alvimopan (Alvimopan 12 Mg Capsule) 12 mg PO ONETIME ONE Stop: 04/27/21 09:01 Lactated Ringer's (Ringers, Lactated) 1,000 mls @ 100 mls/hr IV ASDIRECTED [facility] Last Admin: 04/27/21 02:09 Dose: 100 mls/hr Documented by: Cefoxitin Sodium 2 gm/ Sodium (Chloride) 50 mls @ 100 mls/hr IV ONETIME ONE Stop: 04/27/21 11:29 Fentanyl 2,500 mcg/ Sodium (Chloride) 250 mls @ 0 mls/hr EPIDUR TITRATE CATHIE; Protocol Lisinopril (Lisinopril 10 Mg Tab) 10 mg PO ONETIME ONE Stop: 04/27/21 08:01 Lisinopril (Lisinopril 10 Mg Tab) 10 mg PO DAILY [facility] Naloxone HCl (Naloxone 0.4 Mg/Ml Sdv) 0.1 mg IVPUSH Q5M PRN PRN Reason: RESP RATE LESS THAN 6/MINUTE Ondansetron HCl (Ondansetron 4 Mg/2 Ml Sdv) 4 mg IV Q4H PRN PRN Reason: Nausea/Vomiting Oxycodone HCl (Oxycodone 5 Mg Tab) 5 mg PO Q4H PRN PRN Reason: Pain (moderate 4-6) Polyethylene Glycol (Polyethylene Glycol 3350 Powder 17 Gm Packet) 17 gm PO DAILY PRN PRN Reason: Constipation Sodium Chloride (Sodium Chloride 0.9% 10 Ml Syringe) 10 ml FLUSH ASDIRECTED PRN PRN Reason: Keep Vein Open Discontinued Medications Bisacodyl (Bisacodyl 5 Mg Tab) 10 mg PO ONETIME ONE Stop: 04/25/21 10:02 Last Admin: 04/25/21 10:16 Dose: 10 mg Documented by: Bisacodyl (Bisacodyl 5 Mg Tab) 10 mg PO ONETIME ONE Stop: 04/25/21 20:01 Last Admin: 04/25/21 20:57 Dose: 10 mg Documented by: Bupivacaine HCl (Bupivacaine 0.5% 50 Ml Mdv) Confirm Administered Dose 50 ml .ROUTE .STK-MED ONE Stop: 04/27/21 07:10 Fentanyl (Fentanyl 100 Mcg/2 Ml Sdv) Confirm Administered Dose 100 mcg .ROUTE .STK-MED ONE Stop: 04/26/21 07:23 Sodium Chloride (Normal Saline) 1,000 mls @ 500 mls/hr IV ASDIRECTED [facility] Last Admin: 04/24/21 20:33 Dose: 500 mls/hr Documented by: Sodium Chloride (Normal Saline) 100 mls @ 3 mls/sec IV ASDIRECTED [facility] Last Admin: 04/24/21 21:22 Dose: 3 mls/sec Documented by: Sodium Chloride (Normal Saline) 1,000 mls @ 125 mls/hr IV ASDIRECTED [facility] Last Admin: 04/25/21 07:40 Dose: 125 mls/hr Documented by: Iopamidol (Iopamidol 612 Mg/Ml 150 Ml Bottle) 150 ml IV . DIRECTED PRN PRN Reason: RADIOLOGY EXAM Stop: 04/25/21 20:43 Last Admin: 04/24/21 21:22 Dose: 150 ml Documented by: Labetalol HCl (Labetalol 20 Mg/4 Ml Syringe) 20 mg IVPUSH NOW ONE; Protocol Stop: 04/24/21 20:23 Last Admin: 04/24/21 20:33 Dose: 15 mg Documented by: Lidocaine/Epinephrine (Lidocaine 1% With Epinephrine 1:100,000 50 Ml Mdv) Confirm Administered Dose 50 ml .ROUTE .STK-MED ONE Stop: 04/27/21 07:11 Lisinopril (Lisinopril 10 Mg Tab) 10 mg PO DAILY [facility] Stop: 04/26/21 20:00 Last Admin: 04/26/21 11:28 Dose: 10 mg Documented by: Lisinopril (Lisinopril 10 Mg Tab) 10 mg PO NOW STA Stop: 04/25/21 20:08 Last Admin: 04/25/21 20:55 Dose: 10 mg Documented by: Meropenem (Meropenem 500 Mg Sdv) Confirm Administered Dose 500 mg .ROUTE .STK- MED ONE Stop: 04/27/21 07:10 Midazolam HCl (Midazolam 1 Mg/Ml 2 Ml Sdv) Confirm Administered Dose 2 mg .ROUTE .STK-MED ONE Stop: 04/26/21 07:23 Polyethylene Glycol (Polyethylene Glycol 3350 Powder 238 Gm Bot) 238 gm PO ONETIME ONE Stop: 04/25/21 17:01 Last Admin: 04/25/21 17:36 Dose: 238 gm Documented by: Propofol (Propofol 200 Mg/20 Ml Sdv) Confirm Administered Dose 200 mg .ROUTE .STK-MED ONE Stop: 04/26/21 07:23 Sodium Chloride (Sodium Chloride 0.9% 10 Ml Sdv) 10 ml FLUSH ONETIME ONE Stop: 04/24/21 20:43 Last Admin: 04/24/21 21:22 Dose: 10 ml Documented by: - Exam Quality Assessment: No: Supplemental Oxygen General: Alert, Oriented, Cooperative, No Acute Distress Lungs: Normal Respiratory Effort GI/Abdominal Exam: Soft, No Distention Extremities: No Pedal Edema Psy/Mental Status: Alert, Normal Affect - Patient Data Lab Results Last 24 hrs: Laboratory Results - last 24 hr 04/26/21 04/27/21 04/27/21 Range/Units 09:25 04:15 04:15 WBC 7.3 (4.5-11.0) K/uL RBC 4.35 (3.30-5.50) M/uL Hgb 11.2 L (12.0-15.0) g/dL Hct 35.9 L (36.0-48.0) % MCV 83 (80-98) fL MCH 26 L (27-31) pg MCHC 31 L (32-36) % Plt Count 279 (150-400) K/uL Sodium 140 (140-148) mmol/L Potassium 3.8 (3.6-5.2) mmol/L Chloride 104 (100-108) mmol/L Carbon Dioxide 28 (21-32) mmol/L Anion Gap 8.4 (5.0-14.0) mmol/L BUN 9 (7-18) mg/dL Creatinine 0.8 (0.6-1.0) mg/dL Est Cr Clr Drug Dosing 64.77 mL/min Estimated GFR (MDRD) > 60 (>60) Glucose 85 (74-106) mg/dL Calcium 8.5 (8.5-10.1) mg/dL Phosphorus 4.3 (2.5-4.9) mg/dL Magnesium 1.7 L (1.8-2.4) mg/dL Ferritin 43 (8-388) ng/ml Total Bilirubin 0.3 D (0.2-1.0) mg/dL AST 11 L (15-37) U/L ALT 21 (12-78) U/L Alkaline Phosphatase 80 (46-116) U/L Total Protein 6.0 L (6.4-8.2) g/dL Albumin 2.5 L (3.4-5.0) g/dL Globulin 3.5 (2.3-3.5) g/dL Albumin/Globulin Ratio 0.7 L (1.2-2.2) Blood Type A POSITIVE Gel Antibody Screen Negative Crossmatch See Detail Result Diagrams: 04/27/21 04:15 04/27/21 04:15 Sepsis Event Note - Evaluation Sepsis Screening Result: No Definite Risk - Focused Exam Vital Signs: Vital Signs Temp Pulse Resp BP BP Pulse Ox 04/27/21 07:14 36.4 C 57 L 16 186/82 H 99 04/27/21 02:00 35.4 C L 55 L 18 128/57 L 95 04/26/21 22:36 35.6 C L 49 L 16 153/53 H 96 04/26/21 19:32 168/76 H 04/26/21 19:29 35.9 C L 67 16 177/81 H 98 - Problem List Review Problem List Initiated/Reviewed/Updated: Yes - Plan Plan:: ASSESSMENT AND PLAN LOWER GI BLEED-history of intermittent light bleeding with bowel movements for the past [address] scan shows evidence of probable colon mass and this was confirmed with endoscopy. Minimal bleeding with stable hemoglobin. -Saline lock IV -N.p.o. 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 -Surgical intervention tomorrow per Dr. Sierra ACUTE BLOOD LOSS ANEMIA-secondary to lower GI bleed. Hemoglobin stable. HYPERTENSION-blood pressure control improved since admission and stable. -Lisinopril 10 mg p.o. daily MAINTENANCE ISSUES -DVT prophylaxis; SCUDs, hold on anticoagulation because of active bleeding -GI prophylaxis; not indicated -Wade catheter; not indicated -Nutrition; nothing by mouth DISPOSITION-anticipate discharge to home after the hospital stay Patient is headed to surgery this morning. She has had stable blood pressures over the past couple of days. The hospitalist service will sign off at this time since the patient is headed for surgical intervention. Please feel free to contact with any specific questions or concerns. Skinny Kaplan MD
[2021-04-27] MEDS ORDERED: Succinylcholine 200 MG/10 ML MDV ONE (07:48)
[2021-04-27] MEDS ORDERED: Dexamethasone 4 MG/ML SDV ONE (07:48)
[2021-04-27] MEDS ORDERED: Ondansetron 4 MG/2 ML SDV ONE (07:48)
[2021-04-27] MEDS ORDERED: Neostigmine Methylsulfate 1 MG/ML 5 ML Syringe ONE (07:48)
[2021-04-27] MEDS ORDERED: Rocuronium 50 MG/5 ML Vial ONE (07:48)
[2021-04-27] MEDS ORDERED: fentaNYL 100 MCG/2 ML SDV ONE (07:48)
[2021-04-27] MEDS ORDERED: fentaNYL 250 MCG/5 ML SDV ONE ×2 (07:48→12:50)
[2021-04-27] MEDS ORDERED: Sodium Chloride 0.9% 10 ML ONE ×2 (07:48→14:42)
[2021-04-27] MEDS ORDERED: Propofol 200 MG/20 ML SDV ONE (07:48)
[2021-04-27] MEDS ORDERED: Glycopyrrolate 0.2 MG/ML 5 ML MDV ONE (07:48)
[2021-04-27] MEDS ORDERED: Lisinopril 10 MG Tab PO ONE (08:00)
[2021-04-27] MEDS ORDERED: fentaNYL 2,500 MCG in Sodium Chloride 0.9% 200 ML EPIDUR SCH (11:00)
[2021-04-27] MEDS ORDERED: Naloxone 0.4 MG/ML SDV IVPUSH PRN (11:00)
[2021-04-27] MEDS ORDERED: cefOXitin 2 GM in Sodium Chloride 0.9% 50 ML IV ONE (11:00)
[2021-04-27] MEDS ORDERED: Meropenem 500 MG SDV IRR ONE ×2 (14:17)
[2021-04-27] MEDS ORDERED: Lactated Ringers 1,000 ML ONE ×2 (15:01)
[2021-04-27] MEDS ORDERED: Naloxone 0.4 MG/ML SDV IV PRN (17:00)
[2021-04-27] MEDS ORDERED: Acetaminophen 500 MG Tab PO PRN (17:00)
[2021-04-27] MEDS ORDERED: Metoclopramide 10 MG/2 ML SDV IVPUSH PRN (17:00)
[2021-04-27] MEDS ORDERED: diphenhydrAMINE 50 MG/ML SDV IVPUSH PRN ×2 (17:00)
[2021-04-27] MEDS: MVI, Adult with Vitamin K 10 ML, Thiamine 200 MG, Zinc/Copper/Manganese/Selenium 1 ML i... IV SCH ×4 (17:45)
[2021-04-27] MEDS: cefOXitin 2 GM in Sodium Chloride 0.9% 50 ML IV SCH ×2 (17:45→23:53)
[2021-04-27] MEDS: Pantoprazole 40 MG Vial IVPUSH SCH (17:46)
[2021-04-27] MEDS: Acetaminophen 500 MG Tab PO SCH (17:47)
[2021-04-27] MEDS: hydrOXYzine HCL 100 MG/2 ML SDV IM PRN (19:11)
[2021-04-27] MEDS: Cyclobenzaprine 10 MG Tab PO PRN (21:05)
[2021-04-27] MEDS ORDERED: Tranexamic Acid 1,000 MG in Sodium Chloride 0.9% 50 ML IV ONE (22:05)
[2021-04-27] MEDS ORDERED: Lactated Ringers 1,000 ML IV ONE (22:06)
[2021-04-28] MEDS: Dextrose 5%-Lactated Ringers 1,000 ML IV SCH ×3 (01:18→21:34)
[2021-04-28] MEDS ORDERED: Tranexamic Acid 1,000 MG in Sodium Chloride 0.9% 50 ML IV ONE (01:30)
[2021-04-28] MEDS ORDERED: Lactated Ringers 1,000 ML IV SCH (02:15)
[2021-04-28] MEDS: Acetaminophen 500 MG Tab PO SCH ×3 (02:52→17:56)
[2021-04-28] MEDS: cefOXitin 2 GM in Sodium Chloride 0.9% 50 ML IV SCH ×3 (05:06→17:56)
[2021-04-28] MEDS ORDERED: Lactated Ringers 750 ML IV SCH (06:14)
--- NOTE | 2021-04-28 08:49 | OR ---
DATE OF PROCEDURE: 04/26/2021 SURGEON: Murphy Sierra MD PREOPERATIVE DIAGNOSES: 1. 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 OPERATIVE PROCEDURE: Flexible colonoscopy. ANESTHESIA: IV sedation. INDICATION FOR PROCEDURE: This 65-year-old female presenting with rectal bleeding. This has been going on now for several months and on CT scan initially she was noted have a mass involving the cecum. There was also some questionable thickening of the rectum. Plan is to proceed with a colonoscopy with biopsies and/or polypectomy as indicated. Potential risks including bleeding and perforation were discussed, and the patient wishes to proceed. DETAILS OF PROCEDURE: The patient was taken to the operating room and placed in a left lateral decubitus position, IV sedation was administered. Digital rectal exam did find a mass at the tip of the examiner's finger and examination of this with the colonoscope showed this to be an obvious carcinoma. This was ulcerated and bleeding. As one would pass the scope more proximally, the remainder of the rectum, sigmoid colon, descending colon, splenic flexure, and transverse colon were unremarkable. The colonoscope, probably related to the patient having markedly redundant colon, could not be passed all the way to the cecum. There was some blood present in the lumen at the level of the junction of the ascending colon and transverse colon, the scope could not be passed more proximal to that. At that point the scope was withdrawn. The above findings were reconfirmed. The prep was generally fairly good and the procedure then concluded. At this point, one will need to proceed in the direction of this being a 2 site probable carcinoma and with the active bleeding at this point, early surgical intervention would appear to be warranted. Of note, the mass in the rectum did appear to be fairly mobile, did not appear to fixed to the pelvic sidewalls grossly nor does it appear to be so on the CAT scan. The plan will be to proceed with a total abdominal colectomy with probable low ileoproctostomy. The level of the tumor is such that we should likely be able to get below that level and discuss further with the patient later today or tomorrow morning regarding possibly needing an ileostomy, either as part of the initial procedure or if complications such as leak from the pelvic anastomosis were to occur will be gone over. The plan will be to proceed with exploratory laparotomy. By palpation confirmed there is a mass in the cecum, and if that is the case then we will need to proceed with a total abdominal colectomy with ileoproctostomy. Depending on how low the anastomosis is, one may consider placement of the J-pouch as well. Murphy Sierra MD /[id number]
[2021-04-28] MEDS: Magnesium Sulfate/Water 2 GM in Premix Bag 1 BAG IV SCH ×3 (09:03→21:35)
[2021-04-28] MEDS: Lisinopril 10 MG Tab PO SCH (09:06)
[2021-04-28] MEDS ORDERED: fentaNYL 2,500 MCG in Sodium Chloride 0.9% 200 ML EPIDUR SCH (09:54)
[2021-04-28] MEDS ORDERED: Lactated Ringers 750 ML IV ONE (11:00)
--- NOTE | 2021-04-28 12:38 | PN ---
DATE OF SERVICE: 04/28/2021 The patient has been afebrile with stable vital signs. Concern overnight has been urine output. She has required 3 boluses to maintain that urine output, and creatinine has bumped up from a baseline of 0.8 to 1.3. Otherwise, she has good comfort with the epidural catheter. We will leave that in place and plan to proceed with a delayed primary closure tomorrow. The NG tube we will leave in until then, probably getting that out at the time of the closure. The Wade catheter we may leave in an additional time depending on the urine output status and the epidural catheter which we may leave it in for an extra day or two as well given the extent of the patient's dissection and such. Otherwise, she is alert and appears to be moving on reasonably well, and we will continue work on increasing activity, work on pulmonary toilet. Her albumin is quite low, and we will supplement that over the next 4 days as well; and magnesium is low, and that will be supplemented over the next 3 days. Murphy Sierra MD /[id number]
--- NOTE | 2021-04-28 13:48 | PN ---
DATE OF SERVICE: 04/26/2021 The patient is noted to have some ongoing rectal bleeding. CT scan showed a mass in the cecum and some thickening of the rectum. Unfortunately on colonoscopy this morning, the thickening of the rectum was an obvious carcinoma as well. This was low enough that one could do a primary anastomosis, most likely aiming for a subtotal colectomy. At age 65 with 2 concurrent colon carcinomas, she has high likelihood of developing further malignancies elsewhere. Other option would be to do a right colectomy and then a second rectal anastomosis. This would put the patient at somewhat higher risk regarding 2 anastomoses and also leave the remaining colon in place which at this point appears to be highly likely associated with a carcinoma. Colonoscopy today was somewhat marginal as well in terms of prep due to a large amount of blood and some remaining stool making the possibility that we are leaving some polyps in the colon between the 2 points of malignancy a distinct possibility. Given this, we are probably better off doing a subtotal colectomy with a fairly low anastomosis and perhaps construct a J pouch. This had been discussed earlier with the patient. We will discuss further based on the colonoscopy findings. Potential risks of the procedure including bleeding, infection, leaks from various GI tract closures as well as possibility of cardiopulmonary, septic, or hemorrhagic complications leading to were all discussed, and the patient wishes to proceed. Surgery will be scheduled for tomorrow. We will give her some Ensure Clear today and plan to proceed with a general and epidural anesthetic for the procedure tomorrow. Murphy Sierra MD /[id number]
--- NOTE | 2021-04-28 15:01 | PN ---
DATE OF SERVICE: 04/27/2021 The operative finding of the relatively low rectal carcinoma with active bleeding was reviewed with the patient this morning. This rectal cancer in and of itself would typically be worked up and likely receive some neoadjuvant chemoradiation treatment, however, with concurrent cecal cancer which appears to be at some point to cause an obstruction now essentially the cecum at the ileocecal valve as well as the fact that the patient's active bleeding from the rectal carcinoma would argue against that approach, and on the other hand argue toward may be surgical intervention. This will be done later today. As reviewed with the patient, this is a low rectal carcinoma thought we can probably get with a reasonable margin. This, however, with the right colon lesion would more or less indicate need for a total proctocolectomy with anastomosis just above or at the inguinal level. We would likely proceed with a J-pouch. With all of this, she is aware that she will likely have multiple loose bowel movements long-term with this and likewise has some possible need for ileostomy if we were not able to get margin today or if the patient would develop a leak in anticipation of the patient not having a diverting ileostomy given the lack of previous radiation treatment. She is aware that if she would develop a leak in the ileostomy, would then be required on temporary basis. Otherwise, additional questions were answered with the patient this morning, and she wishes to proceed. Murphy Sierra MD /[id number]
[2021-04-28] MEDS: MVI, Adult with Vitamin K 10 ML, Thiamine 200 MG, Zinc/Copper/Manganese/Selenium 1 ML i... IV SCH ×4 (15:25)
[2021-04-28] MEDS: Pantoprazole 40 MG Vial IVPUSH SCH (17:55)
[2021-04-28] MEDS ORDERED: Furosemide 20 MG/2 ML VIAL IVPUSH ONE (18:47)
[2021-04-29] MEDS: cefOXitin 2 GM in Sodium Chloride 0.9% 50 ML IV SCH ×5 (00:01→23:57)
[2021-04-29] MEDS: hydrOXYzine HCL 100 MG/2 ML SDV IM PRN (01:10)
[2021-04-29] MEDS: Acetaminophen 500 MG Tab PO SCH ×3 (01:12→18:09)
[2021-04-29] MEDS: Magnesium Sulfate/Water 2 GM in Premix Bag 1 BAG IV SCH ×4 (04:28→22:29)
[2021-04-29] MEDS: Dextrose 5%-Lactated Ringers 1,000 ML IV SCH (05:35)
[2021-04-29] MEDS ORDERED: Meropenem 500 MG SDV ONE (06:32)
[2021-04-29] MEDS ORDERED: Bupivacaine 0.5% 50 ML MDV ONE (06:32)
[2021-04-29] MEDS ORDERED: Lidocaine 1% with EPINEPHrine 1:100,000 50 ML MDV ONE (06:32)
[2021-04-29] MEDS ORDERED: Propofol 200 MG/20 ML SDV ONE ×2 (06:57→07:46)
[2021-04-29] MEDS ORDERED: Ropivacaine 50 ML, dexAMETHasone 8 MG, EPINEPHrine 0.4 MG, Sodium Chloride 0.9% 27.6 ML NERVRT SCH ×4 (07:15)
--- NOTE | 2021-04-29 07:21 | OR ---
DATE OF PROCEDURE: 04/27/2021 SURGEON: Murphy Sierra MD PREOPERATIVE DIAGNOSIS: Synchronous masses, cecum and lower rectum with active GI bleeding. POSTOPERATIVE DIAGNOSES: 1. Synchronous masses, cecum and lower rectum with active GI bleeding. 2. Close examination of cecal mass shows more likely submucosal mass at the ileocecal valve versus an overt carcinoma with the rectal lesion being consistent with standard malignancy. OPERATIVE PROCEDURE: Exploratory laparotomy with: 1. Total abdominal colectomy with ileoproctostomy (91142). 2. Mobilization of omentum into pelvis and the patient had Interceed underneath incision to limit recurrent adhesion formation as well as displace small bowel from pelvis in the event postop radiation treatment is required ([id number]). ANESTHESIA: General plus epidural. INDICATION FOR PROCEDURE: Please see notes dictated yesterday and earlier today. Plan is to proceed most likely with a total abdominal colectomy given the 2 synchronous lesions. Lesion on the right side could not be well visualized yesterday and the plan will be to proceed with confirmation of that being a mass on initial exploration, and initially would then proceed with total abdominal colectomy with ileoproctostomy. She is aware of possible need for ileostomy at the time of today's procedure or if complication was to occur such as leak from a pelvic anastomosis. Otherwise, potential risks of the procedure including bleeding, infection, injury to underlying viscera, problems with leaks from GI tract anastomosis, problems with removal of distant tumor, recurrence, as well as possible need for postoperative radiation and/or chemotherapy were all gone over along with remote possibility of cardiopulmonary, septic, or hemorrhagic complications leading to , and the patient wishes to proceed. DETAILS OF PROCEDURE: The patient was taken to the operating room, placed in a supine position. After general endotracheal anesthesia was induced, she was converted to a lithotomy position and a Wade catheter was inserted and the abdominal and rectal were then performed. A midline incision from roughly handbreadths above the umbilicus to the pubis was then made and carried down through full-thickness abdominal wall. Upon entering the peritoneal cavity, the patient was noted to have no ascites or evidence of peritoneal seeding. There was some enlargement of the lymph nodes along the ileocolic chain during the course of the dissection and no obvious enlarged lymph node was noted in the area of the rectum or superior hemorrhoidal chain, and there was no evidence of any visceral metastases such as to the liver. The cecum was quite mobile and easily palpated. There was a palpable mass within the cecum confirming that we would proceed with a total abdominal colectomy. At this point, the small bowel roughly to 15 cm proximal to the ileocecal valve was divided and the peritoneal reflection of the distal small bowel and cecum, ascending colon, and the right lateral aspect of the transverse colon were all then divided with electrocautery, allowing the right colon to be mobilized medially. The omentum was then divided away from the transverse colon to be used subsequently for packing within the pelvis with care taken to avoid devascularizing the omentum. This further allowed the dissection of the transverse colon. At that point, the mesentery of the right and transverse colon were divided. The point of division of the ileocolic chain was flush with the base as take-off from the superior mesenteric vessels as was the middle colic chain and the right colic chain. Attention was then taken to the left colon, lateral peritoneal reflection of the sigmoid and descending colon were all divided. This allowed medial mobilization of those structures and the splenic flexure was mobilized away from the lateral attachments with combination of cautery, blunt dissection, and park. This then allowed the removal of the abdominal colon. The junction of the sigmoid colon and rectum were then divided to allow subsequent easier dissection at the rectal phase of the procedure and the underlying mesentery between the two points were remaining and the abdominal colon was divided with park and the specimen separately delivered from the field. Attention was then taken to the rectal mass. The patient's pelvis was quite fat laden and became quite difficult as far as exposure, but eventually the dissection to a point distal to the tumor was possible and initially the lateral attachments to the rectum were divided and this allowed dissection down along the base of the superior hemorrhoidal vessels. These were then divided flush with the inferior mesenteric vessels with LACEY park. The dissection over the pelvic brim was then continued down to the level of the pelvic floor. Lateral stalks were then taken with LACEY park. At this point, the anterior attachments of the vagina and bladder was then divided and away from the rectum as well, until the entire rectum was more or less dissected down to the level of the pelvic floor. By palpation with the digital finger in the rectum, we could ascertain that we were below the level of the palpable tumor. This was then divided with LACEY black loads. Inspection of the rectal tumor showed a quite close margin. We did obtain some additional margin at the time of the anastomosis and the final margin was sent as a separate specimen. It was noted at this point the cecal mass was identified. This appeared to be more of a submucosal mass involving the area of the ileocecal valve, measured around 4 cm as per the preoperative CT scan. At this point, the small bowel was mobilized downward. There was enough rectum left and we felt that additional potential risks of the J-pouch would not be warranted, particularly given the difficult exposure in the depths of the pelvis. The divided end of the small bowel was then opened and anvil of 25 mm EEA stapler was passed several centimeters in the lumen of the small bowel and then brought out through the antimesenteric aspect of the small bowel, the remaining end was then stapled off with a LACEY stapler. The main body of the EEA stapler was then passed into the rectum up to the rectal staple line. This was then connected to the anvil and stapler fired and the ileoproctostomy was accomplished. After removing the stapler, double donuts of mucosa were noted within it. The final staple line was used for the final distal margin. With the pelvis then inflated with antibiotic-containing saline solution, the colonoscope was passed into the rectum, air insufflated, anastomosis was visualized, appeared to be good blood supply on both sides and with air insufflation no air bubbles or signs leakage were noted. At this point, the pelvis was further irrigated with antibiotic-containing saline solution. The anastomosis was far too low to reinforce with any additional seromuscular stitches, but was reinforced with 6 mL of fibrin sealant. At that point, the omentum was mobilized down in the pelvis to displace the small bowel out of that area as much as possible and Interceed mesh was then placed underneath the upper aspect of the midline incision where there was no omentum covering the small bowel. Two [place] drains were placed, one on the right, one on the left side and taken down along the colic gutters and from there adjacent to the ileoproctostomy. The posterior peritoneum closed with #2 Vicryl stitch as was the anterior fascia. Skin and subcutaneous tissue were packed open for a planned delayed primary closure in 48 hours. The patient was taken to the recovery room in satisfactory condition. There were no evident complications. Murphy Sierra MD /[id number]
[2021-04-29] MEDS ORDERED: HYDROmorphone/Normal Saline 15 MG/30 ML PCA IV PRN (08:15)
--- NOTE | 2021-04-29 08:35 | PN ---
DATE OF SERVICE: 04/29/2021 The patient's urine output has now picked up over last 24 hours and creatinine has dropped down from 1.3 to 1.0. Otherwise, NG output has been negligible. No flatus or bowel movement as of yet. She will be undergoing delayed primary closure later this morning and we will get the epidural out and go with the RENTAL CAR FERRY DRIVER for pain control. Her potassium and phosphate are marginally low; these will be supplemented today and we will give her an additional dose of some Lasix and Wade catheter will be coming out later today as well. The operative findings were discussed with the patient. She preoperatively appeared to have two masses; one in the cecum and one in the rectum. The one in the cecum appeared to probably be a submucosal mass, which is probably benign at the level of the ileocecal valve, and the 2nd one is almost certainly cancer in the low rectum. This was taken out with what appeared to be a small margin and the patient almost certainly will need some adjuvant treatment in that area. She has a low small bowel to rectal anastomosis and once her ileus resolves, she will most certainly have a period of very frequent loose bowel movements. Once those are established, certainly we would want to check a C difficile enterotoxin to make sure that this has not been colonized by means of the antibiotic she has been receiving have been beginning to slow the bowels down as it is able to. She seems to be slightly fluid overloaded this morning and we will give her one dose of Lasix and the NG tube will be coming out today. With hydration, the patient's hemoglobin dropped to 8.6 and we will give her 1 unit of packed RBCs today. Murphy Sierra MD /[id number]
[2021-04-29] MEDS ORDERED: Naloxone 0.4 MG/ML SDV IV PRN (09:00)
[2021-04-29] MEDS ORDERED: Furosemide 20 MG/2 ML VIAL IV ONE (09:00)
[2021-04-29] MEDS: Lisinopril 10 MG Tab PO SCH (09:40)
[2021-04-29] MEDS: Potassium Phos in 0.9 % NaCl 15 MMOL in Premix Bag 1 BAG IV SCH ×4 (12:45→20:30)
[2021-04-29] MEDS ORDERED: Furosemide 20 MG/2 ML VIAL IVPUSH ONE (16:25)
[2021-04-29] MEDS: Pantoprazole 40 MG Vial IVPUSH SCH (18:38)
[2021-04-30] MEDS: Potassium Phos in 0.9 % NaCl 15 MMOL in Premix Bag 1 BAG IV SCH ×2 (01:22)
[2021-04-30] MEDS: Acetaminophen 500 MG Tab PO SCH ×3 (03:35→17:02)
[2021-04-30] MEDS: Magnesium Sulfate/Water 2 GM in Premix Bag 1 BAG IV SCH ×3 (04:27→16:56)
[2021-04-30] MEDS: cefOXitin 2 GM in Sodium Chloride 0.9% 50 ML IV SCH ×2 (06:25→12:38)
[2021-04-30] MEDS ORDERED: Furosemide 20 MG/2 ML VIAL IVPUSH ONE (09:00)
[2021-04-30] MEDS: Lisinopril 10 MG Tab PO SCH (09:28)
[2021-04-30] MEDS: Dextrose 5%-Lactated Ringers 1,000 ML IV SCH (09:30)
--- NOTE | 2021-04-30 09:31 | PN ---
DATE OF SERVICE: 04/30/2021 SUBJECTIVE: Ana María has had no bowel movement yet, but is passing flatus. Pain is controlled with use of MED CARE MANAGER. She has an Aquacel dressing on it, it is dry and intact. She has been having some difficulty with overall edema. Oral intake recorded was 240. She did receive a unit of packed red blood cells yesterday. Urine output 3175 mL. CHARLOTTE drains put out 230 and 80 respectively. Remainder of review of systems negative for any pertinent positives and negatives. OBJECTIVE: GENERAL: Ana María is a 65-year-old female. She is alert and orientated. VITAL SIGNS: TPR is 97.2, 65, 18, blood pressure 173/64. HEENT: Negative. NECK: Supple. HEART: Regular rate and rhythm. LUNGS: Decreased breath sounds bilaterally. She reports she has not been using her incentive spirometer because her breathing is okay. ABDOMEN: Dressing dry and intact. CHARLOTTE drains as above. EXTREMITIES: Peripheral edema. SCDs are not on. ASSESSMENT: 1. Exploratory laparotomy with: a. Total abdominal colectomy with low ileoproctostomy. b. Mobilization of omentum into pelvis with placement of Interceed mesh underlying incision. POSTOP DIAGNOSIS: Rectal mass, highly likely malignant. Date of procedure: 04/27/2021. Surgeon: Murphy Sierra MD. PLAN: 1. Decrease IV to 100 mL per hour. 2. May shower. 3. Lasix 20 mg IV one time now. 4. Check CBC, CMP, mag, phos in a.m. 5. We will evaluate p.r.n. or in a.m. Va Gomes PA-C /[id number]
[2021-04-30] MEDS: Pantoprazole 40 MG Vial IVPUSH SCH (17:01)
[2021-04-30] MEDS: Labetalol 20 MG/4 ML Syringe IVPUSH PRN (23:55)
[2021-05-01] MEDS: Magnesium Sulfate/Water 2 GM in Premix Bag 1 BAG IV SCH ×2 (01:22→03:40)
[2021-05-01] MEDS: Acetaminophen 500 MG Tab PO SCH ×3 (01:25→17:05)
[2021-05-01] MEDS: Labetalol 20 MG/4 ML Syringe IVPUSH PRN ×2 (03:56→09:11)
[2021-05-01] MEDS: Dextrose 5%-Lactated Ringers 1,000 ML IV SCH (04:02)
[2021-05-01] MEDS ORDERED: HYDROmorphone 2 MG Tab PO PRN (06:56)
[2021-05-01] MEDS ORDERED: Dextrose 5%-Lactated Ringers 1,000 ML IV SCH (07:44)
--- NOTE | 2021-05-01 07:49 | PN ---
DATE OF SERVICE: 05/01/2021 SUBJECTIVE: Ana María had oral intake of 850, urine output 2400. CHARLOTTE drain 1 and 2 put out 190 and 125 respectively. Pain has been controlled with a TECHNICAL PROPOSAL WRITER. Vital signs have been stable with the exception of a high blood pressure during the night. She was given labetalol 1 time. She started having bowel movements and has had a total of 8 in the past 24 hours. REVIEW OF SYSTEMS: Remainder of review of systems negative for any pertinent positives or negatives. DATA: Labs today; hemoglobin 9.8, potassium 3.3, and BNP 1849. OBJECTIVE: GENERAL: Ana María is a pleasant 65-year-old female. She is resting comfortably in bed. VITAL SIGNS: TPR is 98, 59, and 18. Blood pressure 171/59. HEENT: Negative. NECK: Supple. HEART: Regular rate and rhythm. LUNGS: Clear. ABDOMEN: Dressings dry and intact. CHARLOTTE drains as above. EXTREMITIES: Without peripheral edema. ASSESSMENT: Exploratory laparotomy with: 1. Total abdominal colectomy with low ileoproctostomy. 2. Mobilization of omentum into pelvis with placement of Interceed mesh underlying incision. POSTOPERATIVE DIAGNOSES: 1. Rectal mass, highly likely malignant. 2. Date of procedure 04/27/2021. Surgeon: Murphy Sierra MD. PLAN: 1. Rx KCl 20 mEq with lidocaine 3 times today. 2. Discontinue TECHNICAL PROPOSAL WRITER. 3. Dilaudid 2 mg q.4 hours p.r.n. pain. 4. Check Clostridium difficile. 5. Communication order to call with results of Clostridium difficile. 6. Full liquid diet. 7. Lasix 20 mg IV twice b.i.d. today. 8. Check CBC, CMP, mag, phos, and BNP in a.m. 9. We will evaluate p.r.n. or in a.m. Va Gomes PA-C /[id number]
[2021-05-01] MEDS: Cyclobenzaprine 10 MG Tab PO PRN ×2 (08:52→17:04)
[2021-05-01] MEDS: Furosemide 20 MG/2 ML VIAL IVPUSH SCH ×2 (08:53→21:49)
[2021-05-01] MEDS: Lactobacillus Rhamnosus GG (Probiotic) Cap PO SCH ×2 (08:53→21:48)
[2021-05-01] MEDS: Lisinopril 10 MG Tab PO SCH (08:53)
[2021-05-01] MEDS: Potassium Chloride 20 MEQ, Lidocaine 1% 2 ML in Sodium Chloride 0.9% 100 ML IV SCH ×3 (09:59→14:36)
[2021-05-01] MEDS: Loperamide 2 MG Cap PO PRN ×2 (12:22→21:48)
[2021-05-01] MEDS: traMADol 50 MG Tab PO PRN ×2 (12:22→21:49)
[2021-05-01] MEDS ORDERED: Lisinopril 10 MG Tab PO ONE (12:30)
[2021-05-01] MEDS ORDERED: traMADol 50 MG Tab PO SCH (12:30)
[2021-05-01] MEDS: Pantoprazole 40 MG Tab.CR PO SCH (21:48)
[2021-05-01] MEDS: hydrOXYzine HCL 100 MG/2 ML SDV IM PRN (23:37)
[2021-05-02] MEDS: Acetaminophen 500 MG Tab PO SCH ×3 (02:12→18:04)
[2021-05-02] MEDS ORDERED: Furosemide 20 MG/2 ML VIAL IVPUSH SCH (09:00)
--- NOTE | 2021-05-02 09:07 | PN ---
DATE OF SERVICE: 05/02/2021 SUBJECTIVE: Ana María reports she is having a lot of pain, more pain than what she has had since surgery. She is on oral Dilaudid, but nursing staff states that she is very reluctant to take anything in narcotic form for pain. They did talk her into getting 1 Dilaudid at 6 a.m. She otherwise has been taking Extra-Strength Tylenol, Flexeril, and Vistaril. Oral intake 970. Urine output was 810. She does have 2 CHARLOTTE drains which are draining 120 and 190 respectively. A Clostridium difficile was obtained and was negative. She was started on Motrin for loose stools. Yesterday, she had 6. Ana María is a pleasant 65-year-old female, quite sleepy from the Dilaudid that was given about 30 to 45 minutes prior. She still rates her pain a 7 to 8. REVIEW OF SYSTEMS: Remainder of review of systems negative for any pertinent positives and negatives. LABORATORY DATA: Today, white count is 9.1, hemoglobin is 10.6. Potassium is 3.7. BNP is 1889. OBJECTIVE: GENERAL: Ana María Galaviz is a pleasant 65-year-old female. She is quite sleepy. VITAL SIGNS: TPR is 98.7, 62, 18, blood pressure 188/70. HEENT: Negative. NECK: Supple. HEART: Regular rate and rhythm. LUNGS: Clear. ABDOMEN: Aquacel dressings on. Abdominal binder is on. EXTREMITIES: Without peripheral edema. ASSESSMENT: Exploratory laparotomy with: 1. Total abdominal colectomy with low ileoproctostomy. 2. Mobilization of omentum into pelvis with placement of Interceed mesh underlying incision. POSTOPERATIVE DIAGNOSES: Rectal mass, highly likely malignant. Date of procedure: 04/27/2021. Surgeon: Murphy Sierra MD. PLAN: 1. Discontinue IV, which is already infiltrated. 2. Lasix 20 mg p.o. b.i.d. 3. KCl 40 mEq once daily. 4. Discontinue Dilaudid. 5. Oxycodone 5 mg q.4 hours p.r.n. pain. 6. Motrin 400 mg q.6 hours p.o. pain. 7. Continue use of incentive spirometer. 8. We will evaluate p.r.n. or in a.m. Va Gomes PA-C /[id number]
[2021-05-02] MEDS: Furosemide 20 MG Tab PO SCH ×2 (11:05→15:36)
[2021-05-02] MEDS: Lactobacillus Rhamnosus GG (Probiotic) Cap PO SCH ×2 (11:05→20:51)
[2021-05-02] MEDS: Lisinopril 20 MG Tab PO SCH (11:05)
[2021-05-02] MEDS: Ibuprofen 400 MG Tab PO SCH ×3 (11:05→20:50)
[2021-05-02] MEDS: Potassium Chloride 20 MEQ Tab.ER PO SCH (11:05)
[2021-05-02] MEDS: Pantoprazole 40 MG Tab.CR PO SCH (20:50)
[2021-05-02] MEDS: oxyCODONE 5 MG Tab PO PRN (23:03)
[2021-05-03] MEDS: Ibuprofen 400 MG Tab PO SCH ×2 (02:22→08:19)
[2021-05-03] MEDS: Acetaminophen 500 MG Tab PO SCH (02:22)
[2021-05-03] MEDS: Furosemide 20 MG Tab PO SCH (08:18)
[2021-05-03] MEDS: Lisinopril 20 MG Tab PO SCH (08:19)
[2021-05-03] MEDS: Potassium Chloride 20 MEQ Tab.ER PO SCH (08:19)
[2021-05-03] MEDS: Lactobacillus Rhamnosus GG (Probiotic) Cap PO SCH (08:20)
[2021-05-03] MEDS: oxyCODONE 5 MG Tab PO PRN (08:46)
--- NOTE | 2021-05-03 09:41 | DISCH ---
ADMISSION DIAGNOSES: 1. Lower gastrointestinal bleeding. 2. Colon mass. 3. Hypertension. DISCHARGE DIAGNOSES: 1. Flexible colonoscopy. a. 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 c. Date of procedure: 04/26/2021. Surgeon: Murphy Sierra MD. 2. Exploratory laparotomy with: a. Total abdominal colectomy with ileoproctostomy. b. Mobilization of omentum into pelvis and the patient had Interceed mesh underneath incision to limit recurrent adhesion formation as well as displace small bowel from pelvis in the event postop radiation treatment is required. POSTOPERATIVE DIAGNOSES: 1. Synchronous masses cecum and lower rectum with active gastrointestinal bleeding. 2. Closed examination of cecal mass shows more likely submucosal mass at the ileocecal valve versus an overt carcinoma with a rectal lesion being consistent with standard malignancy. Date of procedure: 04/27/2021. Surgeon: Murphy Sierra MD. 3. Delayed primary closure for open abdominal incision, 04/29/2021. Surgeon: Murphy Sierra MD. HISTORY: Ana María Galaviz is a 65-year-old female from [place], [place], who was camping in the [facility]. She presented to the emergency room with a several-month history of rectal bleeding, but had increased and involved more pain. She had a CT scan initially and was noted to have a mass involving the cecum. There was some questionable thickening of the rectum. She had a colonoscopy which revealed 2 sites probable carcinoma with active bleeding at that site. After preoperative evaluation and discussion of possible risks and possible complications, she wished to proceed with surgical procedure. HOSPITAL COURSE: Admission on 04/24/2021, hemoglobin had dropped from initial ER visit. She had the colonoscopy on 04/26/2021 and surgery was on 04/27/2021 with delayed primary closure on 04/29/2021. She had no operative complications. She did have on postoperative day #1, low urinary output with 3 boluses of fluid to increase urinary output and creatinine had bumped up from her baseline of 0.8 to 1.3. She had an epidural catheter. Her pain was controlled. Delayed primary closure was on 04/29/2021. Albumin and magnesium were supplemented. On 04/29 after delayed primary closure, the epidural was out and she was switched to STRATEGIC COMMUNICATIONS MANAGER for pain control. She was given Lasix for some fluid overload and 1 unit of packed red blood cells for a hemoglobin of 8.6. On 04/30/2021, she was passing flatus. Pain was controlled with STRATEGIC COMMUNICATIONS MANAGER and IV was decreased. She was given Lasix 20 mg IV for elevated BNP. On 05/01/2021, intake and output were adequate. Pain was controlled with the STRATEGIC COMMUNICATIONS MANAGER and she did have 8 bowel movements in 24 hours. Clostridium difficile was checked and it was negative. She was started on a full liquid diet and continued with the Lasix 20 mg IV b.i.d. and potassium supplement. On 05/02/2021, IV infiltrated, so was left out. Started on Lasix 20 mg p.o. b.i.d., potassium supplement, and Dilaudid was discontinued and she was reluctant to take any narcotics, so we added Motrin 400 mg q.6 hours scheduled along with scheduled Tylenol and then she could have oxycodone every 4 hours as needed. This did control her pain. On 05/03/2021, Ana María states she wanted to go home. She feels good. She did have 4 bowel movements yesterday, taking the Imodium as needed, feeling stronger. She is independent in her room. Understands the full liquid diet. She will be receiving dietary instruction before discharge. Her sister is here. Ana María will be discharged today, 05/03/2021 with no complications. PHYSICAL EXAMINATION: GENERAL: Ana María is a pleasant 65-year-old female. VITAL SIGNS: Height is 5 feet 4.96 inches, weight 220 pounds. TPR 97.3, 62, 16, blood pressure 146/58. HEENT: Negative. NECK: Supple. HEART: Regular rate and rhythm. LUNGS: Clear. ABDOMEN: Aquacel dressing is on. CHARLOTTE drains will be removed prior to discharge and abdominal binder is on. EXTREMITIES: Without peripheral edema. NEUROLOGIC: Intact. PSYCHIATRIC: Mood and affect appropriate. DISPOSITION: Discharged to home. CONDITION: Stable and improving. FOLLOWUP APPOINTMENTS: Va Gomes PA-C, on 05/10/2021 at 11 a.m. She will also see Dr. Murphy Sierra at that time. To check a CBC, CMP, mag, phos, and BNP in a.m. before that appointment. HOME MEDICATIONS: 1. Oxycodone 5 mg p.o. q.4 hours p.r.n. pain, #12. 2. Imodium 4 mg p.o. q.6 hours p.r.n. diarrhea, #30. 3. Lisinopril 20 mg p.o. daily, #90. 4. Motrin 400 mg q.6 hours p.r.n. pain, #40. 5. Tylenol 1000 mg 8 hours p.r.n. pain, #100. DIET: Full liquid diet. Drink 8 to 10 glasses of water a day and protein supplements between meals up to 3 to 4 a day. ACTIVITY: No lifting greater than 10 pounds for 6 weeks. OTHER ACTIVITY: Walk 6 times daily inside your home. Driving: Do not drive for 1 week. Shower/bathing: May shower. Wound incision care: Keep operative site clean and dry. Wear abdominal binder for 6 weeks. Take off the big sticky Aquacel dressing in 3 days on , 05/06/2021. Notify provider if any fever, increased pain, swelling, redness, drainage, nausea, or vomiting. SPECIAL INSTRUCTIONS: 1. Use incentive spirometer 10 times every hour while awake for 1 week. 2. Call Surgery Department at [place], [place], at [phone] or [facility] at [phone] Sierra or Va Gomes if any questions or concerns. 3. Walk 3 minutes for every hour you are driving in the car. /[id number]
--- NOTE | 2021-05-05 16:40 | OR ---
DATE OF PROCEDURE: 04/29/2021 SURGEON: Murphy Sierra MD PREOPERATIVE DIAGNOSIS: Open abdominal incision. POSTOPERATIVE DIAGNOSIS: Open abdominal incision. OPERATIVE PROCEDURE: Delayed primary closure of open abdominal incision. ANESTHESIA: Local plus IV sedation. INDICATION FOR PROCEDURE: A 65-year-old status post an open colorectal procedure in which there was inherent contamination of skin and subcutaneous tissue, which was therefore felt to be at high risk for wound infection if primary closure was undertaken. Given this, the skin and subcutaneous tissue were packed open for a planned delayed primary closure at this time. Potential risks including bleeding and infection were discussed, and the patient wishes to proceed. DETAILS OF PROCEDURE: The patient was taken to the operating room and placed in a supine position. IV sedation was administered, after which the previous operative dressing was taken down. The wound inspected, found to be clean. The wound was then prepped and draped, anesthetized with 1% lidocaine mixed with Marcaine and bilateral transversus abdominis plane blocks were then placed using ultrasound guidance. Incision was then closed with 2 layers of 3-0 and 4-0 Vicryl stitch deep and then park for the skin. Dressing was applied. The patient was taken to the recovery room in satisfactory condition. Murphy Sierra MD /[id number]
== END 2021-05-03 09:14 | disposition home or self-care (01) | DRG 221 ==
LOC: JP.ED 19:23 → JP.MS 22:34
PROVIDERS: ADMIT Hospitalist; ATTEND Internal Medicine
PROC: 0DJD8ZZ Inspection of Lower Intestinal Tract, Via Natural or Artificial Opening Endoscopic (ICD-10-PCS; 2021-04-26)
PROC: 0DTE0ZZ Resection of Large Intestine, Open Approach (ICD-10-PCS; 2021-04-27)
PROC: 3E0M05Z Introduction of Adhesion Barrier into Peritoneal Cavity, Open Approach (ICD-10-PCS; 2021-04-27)
PROC: 0DBP0ZZ Excision of Rectum, Open Approach (ICD-10-PCS; 2021-04-27)
PROC: 0D1B0ZP Bypass Ileum to Rectum, Open Approach (ICD-10-PCS; 2021-04-27)
PROC: 0UT10ZZ Resection of Left Ovary, Open Approach (ICD-10-PCS; 2021-04-27)
PROC: 0UT60ZZ Resection of Left Fallopian Tube, Open Approach (ICD-10-PCS; 2021-04-27)
PROC: XW033N5 Introduction of Meropenem-vaborbactam Anti-infective into Peripheral Vein, Percutaneous Approach, New Technology Group 5 (ICD-10-PCS; 2021-04-27)
PROC: 0WQF0ZZ Repair Abdominal Wall, Open Approach (ICD-10-PCS; principal; 2021-04-29)
DX: C20 Malignant neoplasm of rectum (principal); C18.0 Malignant neoplasm of cecum; H54.7 Unspecified visual loss; K65.8 Other peritonitis; I10 Essential (primary) hypertension; M19.90 Unspecified osteoarthritis, unspecified site; F32.9 Major depressive disorder, single episode, unspecified; D62 Acute posthemorrhagic anemia; K92.2 Gastrointestinal hemorrhage, unspecified; Z88.5 Allergy status to narcotic agent
CPT/HCPCS: 36415; 36430; 74177; 80048; 80053; 82378; 82728; 83735; 83880; 84100; 85018; 85025; 85027; 85610; 86850; 86900; 86901; 86920; 86922; 87493; 88305; 88307; 88309; 88341; 94762; 96374; 97110-GP; 97161-GP; 97530-GP; 97535-GP; 99285-25; A9270-GY; C9113; J0171; J0330; J0694; J1100; J1170; J1940; J2185; J2250; J2405; J2704; J2710; J2795; J3010; J3410; J3411; J3475; J3480; J3490; J7030; J7050; J7120; J7121; P9016; P9047; Q9967